=== PATIENT | female | born 1985 | race Caucasian/White ===

== ENCOUNTER 2016-06-15 12:02 | Emergency (ER) | payer OTHER ==
--- NOTE | 2016-06-15 14:20 | ED CLINICAL REPORT ---
Clinical Report - Physicians/Mid Levels [facility] [address] [place] [address] 06/15/2016 12:09 Patient: REBECCA SIFUENTES Time Seen: 13:08 Jun 15 2016. Arrived- By private vehicle. Historian- patient and family. HISTORY OF PRESENT ILLNESS Chief Complaint: MOUTH SORE. This started yesterday and is still present and worsening. Pain described as moderate. No mouth sores, nasal congestion, toothache or swollen jaw or face. She has had jaw pain. (Yesterday patient developed a cold sore. She's had them before but not at this location on her lip. Today it got worse and now patient feels some lymph nodes in her neck as well. She's had a little bit of body aches as well.). Similar symptoms previously: Milder. Recent medical care: Not recently seen/assessed. REVIEW OF SYSTEMS No fever, nausea, diarrhea, difficulty with urination or joint pain. No vomiting. She has had skin rash. All systems otherwise negative, except as recorded above. PAST HISTORY See nurses notes. No history of heart disease or lung disease. SOCIAL HISTORY Never smoker. No alcohol use or drug use. ADDITIONAL NOTES The nursing notes have been reviewed. PHYSICAL EXAM Appearance: Alert. No acute distress. Head: (No Ibarra sign.). Eyes: Pupils equal, round and reactive to light. Conjunctivae and eyelids normal. ENT: Ears normal. Nose normal. Pharynx normal. No trismus present. Uvula midline. (Lower lip has a single yellowish crusting vesicle consistent with HSV. Mild edema of the lower lip. No significant erythema.). Neck: Mild left anterior neck lymphadenopathy present. No left posterior neck lymphadenopathy. Trachea midline. Neck supple. CVS: Normal heart rate and rhythm. Heart sounds normal. Respiratory: No respiratory distress. Breath sounds normal. Skin: Normal skin color. Normal skin turgor. Extremities: Extremities exhibit normal ROM. Neuro: Oriented X 3. No motor deficit. No sensory deficit. PROGRESS AND PROCEDURES Course of Care: HSV and a new location on her lip which probably caused lymphadenopathy in the generalized symptoms. We'll treat aggressively withValtrex.I doubt cellulitis of the lip, however, [id number] prescription of Keflex was given in the event the symptoms don't start to improve in the next 48 hours. CLINICAL IMPRESSION Herpes labialis Doubt facial cellulitis INSTRUCTIONS Rest at home for two days until better. Drink plenty of fluids. Warnings: GENERAL WARNINGS: Return or contact your physician immediately if your condition worsens or changes unexpectedly, if not improving as expected, or if other problems arise. Specifically return if pain, vomiting, bleeding, breathing difficulty or fever greater than 102 degrees F worsens or fails to improve. Prescription Medications: Keflex 500 mg: take 1 capsule orally every 6 hours for 7 days. No refill. Substitution is permissible. Valtrex 1000 mg: take 1 tab orally every 12 hours for 5 days. No refills. Substitution is permissible. Follow-up: Follow up with your doctor in five days if not well. Summary of care provided to patient and follow-up provider. Understanding of the discharge instructions verbalized by patient. (Electronically signed by Kirit Hoyos, 06/15/2016 23:08)
--- NOTE | 2016-06-15 14:20 | ED NURSING NOTES ---
Clinical Report - Nurses [place] [address] [place] [address] 06/15/2016 12:09 Patient: REBECCA SIFUENTES TRIAGE Triage time 12:16. Acuity: LEVEL 4. Chief Complaint: MOUTH SORE and ("Jaw hurts"). Alert. No acute distress. SEPSIS SCREEN: Sepsis Screen. Negative (no infection suspected/documented). MIGUEL COMA SCORE: Miguel Coma Scale: 15- eyes open spontaneously (4); best verbal response- oriented x 4 (5); best motor response- obeys commands (6). --12:18 Divine Delcid R.N. 12:16 06/15/16. BP: 131/68. HR: 61. RR: 18. O2 saturation: 99%. Temp: 98.3 F. Pain level now 07/06. --12:18 Divine Delcid R.N. Weight: 127 kg stated. Height/Length: 66 inches Per Patient. BMI: 45.2. --12:17 Divine Delcid R.N. Medications None. --12:18 Divine Delcid R.N. Allergies Latex. --12:18 Divine Delcid R.N. History Arrived by private vehicle. Historian: patient. Accompanied by family. Primary physician (Dr. Andrews). This started yesterday. 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 PAST MEDICAL HX: Immunizations: up-to-date. SOCIAL HX: Never smoker. No alcohol use or drug use. No infectious disease exposure. ABUSE ASSESSMENT: Abuse assessment: The patient was asked "Do you feel safe in your home?" and "Has anyone hurt you or threatened to hurt you?". No report of abuse. SELF HARM ASSESSMENT: A self harm assessment was performed. The patient answered "no" to the question "Do you have thoughts of harming or killing yourself?" and "Have you recently had thoughts about harming or killing others?". NUTRITIONAL RISK ASSESSMENT: The nutritional risk assessment revealed no deficiencies. FUNCTIONAL ASSESSMENT: Functional assessment: no impairments noted. LEARNING NEEDS ASSESSMENT: The learning needs assessment revealed no barriers. --12:18 Divine Delcid R.N. PROBLEMS: Sprain. Dental Pain. Seizure. Acute Pain. URI. Pyelonephritis. Sinusitis. Bronchitis. --12:18 Divine Delcid R.N. ADDITIONAL SURGERIES: Cholecystectomy. . --12:18 Divine Delcid R.N. Interventions ID band on patient. Ambulatory. --12:18 Divine Delcid R.N. PHYSICAL ASSESSMENT Ambulatory to room. GENERAL / NEURO / PSYCH: Alert. Appears in no acute distress. --12:18 Divine Delcid R.N. HEENT: Voice within normal limits. Mucous membranes are pink. RESPIRATORY: Respirations not labored. SKIN: Skin is warm and dry. --12:19 Divine Delcid R.N. NURSING PROGRESS NOTES Head of bed elevated. Two patient identifiers checked. Call light placed in reach. Side rails up x 2. Bed placed in lowest position. Brakes of bed on. --12:19 Divnie Delcid R.N. Patient ready for evaluation- chart flagged. --12:19 Divine Delcid R.N. 14:35. The patient is calm. Overall patient status is the same- she states feels the same. GENERAL / NEURO / PSYCH: Alert. Oriented X 4. RESPIRATORY: No respiratory distress. SKIN: Skin is warm and dry. --16:31 Zarina Burks R.N. DISPOSITION / DISCHARGE Departure time: 1435. Condition at departure: improved and stable. No learning barriers present. Discharge instructions provided and reviewed with the patient. Reviewed medication(s). Prescription(s) given to the patient. Patient verbalized understanding. Written instructions provided in [place]. The patient was discharged home and accompanied by family. She left the Emergency Department ambulatory and via private vehicle. FALL RISK ASSESSMENT: Fall risk assessment completed. No fall risk identified. --16:30 Zarina Burks R.N. 14:35 06/15/16. BP: 134/85. HR: 65. RR: 18. O2 saturation: 99% on room air. Pain level now: 06/08. --16:30 Vitaliy, Zarina, R.N. Locked/Released at 06/15/2016 16:31 by Zarina Burks R.N.
--- NOTE | 2016-06-15 14:20 | ED CLINICAL REPORT ---
Clinical Report - Physicians/Mid Levels [facility] [address] [place] [address] 06/15/2016 12:09 Patient: REBECCA SIFUENTES Time Seen: 13:08 Jun 15 2016. Arrived- By private vehicle. Historian- patient and family. HISTORY OF PRESENT ILLNESS Chief Complaint: MOUTH SORE. This started yesterday and is still present and worsening. Pain described as moderate. No mouth sores, nasal congestion, toothache or swollen jaw or face. She has had jaw pain. (Yesterday patient developed a cold sore. She's had them before but not at this location on her lip. Today it got worse and now patient feels some lymph nodes in her neck as well. She's had a little bit of body aches as well.). Similar symptoms previously: Milder. Recent medical care: Not recently seen/assessed. REVIEW OF SYSTEMS No fever, nausea, diarrhea, difficulty with urination or joint pain. No vomiting. She has had skin rash. All systems otherwise negative, except as recorded above. PAST HISTORY See nurses notes. No history of heart disease or lung disease. SOCIAL HISTORY Never smoker. No alcohol use or drug use. ADDITIONAL NOTES The nursing notes have been reviewed. PHYSICAL EXAM Appearance: Alert. No acute distress. Head: (No Ibarra sign.). Eyes: Pupils equal, round and reactive to light. Conjunctivae and eyelids normal. ENT: Ears normal. Nose normal. Pharynx normal. No trismus present. Uvula midline. (Lower lip has a single yellowish crusting vesicle consistent with HSV. Mild edema of the lower lip. No significant erythema.). Neck: Mild left anterior neck lymphadenopathy present. No left posterior neck lymphadenopathy. Trachea midline. Neck supple. CVS: Normal heart rate and rhythm. Heart sounds normal. Respiratory: No respiratory distress. Breath sounds normal. Skin: Normal skin color. Normal skin turgor. Extremities: Extremities exhibit normal ROM. Neuro: Oriented X 3. No motor deficit. No sensory deficit. PROGRESS AND PROCEDURES Course of Care: HSV and a new location on her lip which probably caused lymphadenopathy in the generalized symptoms. We'll treat aggressively withValtrex.I doubt cellulitis of the lip, however, [id number] prescription of Keflex was given in the event the symptoms don't start to improve in the next 48 hours. CLINICAL IMPRESSION Herpes labialis Doubt facial cellulitis INSTRUCTIONS Rest at home for two days until better. Drink plenty of fluids. Warnings: GENERAL WARNINGS: Return or contact your physician immediately if your condition worsens or changes unexpectedly, if not improving as expected, or if other problems arise. Specifically return if pain, vomiting, bleeding, breathing difficulty or fever greater than 102 degrees F worsens or fails to improve. Prescription Medications: Keflex 500 mg: take 1 capsule orally every 6 hours for 7 days. No refill. Substitution is permissible. Valtrex 1000 mg: take 1 tab orally every 12 hours for 5 days. No refills. Substitution is permissible. Follow-up: Follow up with your doctor in five days if not well. Summary of care provided to patient and follow-up provider. Understanding of the discharge instructions verbalized by patient. (Electronically signed by Kirit Hoyos, 06/15/2016 23:08)
--- NOTE | 2016-06-15 14:20 | ED NURSING NOTES ---
Clinical Report - Nurses [place] [address] [place] [address] 06/15/2016 12:09 Patient: REBECCA SIFUENTES TRIAGE Triage time 12:16. Acuity: LEVEL 4. Chief Complaint: MOUTH SORE and ("Jaw hurts"). Alert. No acute distress. SEPSIS SCREEN: Sepsis Screen. Negative (no infection suspected/documented). MIGUEL COMA SCORE: Miguel Coma Scale: 15- eyes open spontaneously (4); best verbal response- oriented x 4 (5); best motor response- obeys commands (6). --12:18 Divine Delcid R.N. 12:16 06/15/16. BP: 131/68. HR: 61. RR: 18. O2 saturation: 99%. Temp: 98.3 F. Pain level now 07/06. --12:18 Divine Delcid R.N. Weight: 127 kg stated. Height/Length: 66 inches Per Patient. BMI: 45.2. --12:17 Divine Delcid R.N. Medications None. --12:18 Divine Delcid R.N. Allergies Latex. --12:18 Divine Delcid R.N. History Arrived by private vehicle. Historian: patient. Accompanied by family. Primary physician (Dr. Andrews). This started yesterday. 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 PAST MEDICAL HX: Immunizations: up-to-date. SOCIAL HX: Never smoker. No alcohol use or drug use. No infectious disease exposure. ABUSE ASSESSMENT: Abuse assessment: The patient was asked "Do you feel safe in your home?" and "Has anyone hurt you or threatened to hurt you?". No report of abuse. SELF HARM ASSESSMENT: A self harm assessment was performed. The patient answered "no" to the question "Do you have thoughts of harming or killing yourself?" and "Have you recently had thoughts about harming or killing others?". NUTRITIONAL RISK ASSESSMENT: The nutritional risk assessment revealed no deficiencies. FUNCTIONAL ASSESSMENT: Functional assessment: no impairments noted. LEARNING NEEDS ASSESSMENT: The learning needs assessment revealed no barriers. --12:18 Divine Delcid R.N. PROBLEMS: Sprain. Dental Pain. Seizure. Acute Pain. URI. Pyelonephritis. Sinusitis. Bronchitis. --12:18 Divine Delcid R.N. ADDITIONAL SURGERIES: Cholecystectomy. . --12:18 Divine Delcid R.N. Interventions ID band on patient. Ambulatory. --12:18 Divine Delcid R.N. PHYSICAL ASSESSMENT Ambulatory to room. GENERAL / NEURO / PSYCH: Alert. Appears in no acute distress. --12:18 Divine Delcid R.N. HEENT: Voice within normal limits. Mucous membranes are pink. RESPIRATORY: Respirations not labored. SKIN: Skin is warm and dry. --12:19 Divine Delcid R.N. NURSING PROGRESS NOTES Head of bed elevated. Two patient identifiers checked. Call light placed in reach. Side rails up x 2. Bed placed in lowest position. Brakes of bed on. --12:19 Divine Delcid R.N. Patient ready for evaluation- chart flagged. --12:19 Divine Delcid R.N. 14:35. The patient is calm. Overall patient status is the same- she states feels the same. GENERAL / NEURO / PSYCH: Alert. Oriented X 4. RESPIRATORY: No respiratory distress. SKIN: Skin is warm and dry. --16:31 Zarina Burks R.N. DISPOSITION / DISCHARGE Departure time: 1435. Condition at departure: improved and stable. No learning barriers present. Discharge instructions provided and reviewed with the patient. Reviewed medication(s). Prescription(s) given to the patient. Patient verbalized understanding. Written instructions provided in [place]. The patient was discharged home and accompanied by family. She left the Emergency Department ambulatory and via private vehicle. FALL RISK ASSESSMENT: Fall risk assessment completed. No fall risk identified. --16:30 Zarina Burks R.N. 14:35 06/15/16. BP: 134/85. HR: 65. RR: 18. O2 saturation: 99% on room air. Pain level now: 06/08. --16:30 Vitaliy, Zarina, R.N. Locked/Released at 06/15/2016 16:31 by Zarina Burks R.N.
--- NOTE | 2016-06-15 23:09 | ED DISCHARGE INSTRUCTIONS ---
Patient: REBECCA SIFUENTES General Instructions [facility] VisitID: [id number] [place] [address] 30y, F Registration Date/Time: 06/15/2016 Herpes labialis INSTRUCTIONS Rest at home for two days until better. Drink plenty of fluids. Warnings: GENERAL WARNINGS: Return or contact your physician immediately if your condition worsens or changes unexpectedly, if not improving as expected, or if other problems arise. Specifically return if pain, vomiting, bleeding, breathing difficulty or fever greater than 102 degrees F worsens or fails to improve. Prescription Medications: Keflex 500 mg: take 1 capsule orally every 6 hours for 7 days. No refill. Substitution is permissible. Valtrex 1000 mg: take 1 tab orally every 12 hours for 5 days. No refills. Substitution is permissible. Follow-up: Follow up with your doctor in five days if not well. Summary of care provided to patient and follow-up provider. Understanding of the discharge instructions verbalized by patient. ADDITIONAL INFORMATION Facial Cellulitis You have an infection of the skin known as cellulitis. This usually starts with a scrape, cut or insect bite which becomes infected. It may also occur from an infected oil gland (pimple) or hair follicle. This can be a serious condition and must be watched closely to be sure the infection is not spreading. With antibiotic treatment, the size of the red area will gradually shrink in size until the skin returns to normal. This will take 7-10 days. The red area should never increase in size once the antibiotic medicine has been started. Occasionally, an infection will be resistant to one antibiotic and another one will have to be used. Home Care: 1) Take all of the antibiotic medicine exactly as prescribed until it is gone. Be careful not to miss any doses, especially during the first few days. 2) A cool compress (face cloth soaked in cool water) applied to the face may help with the swelling and pain. 3) You may use acetaminophen (Tylenol) or ibuprofen (Motrin, Advil) to control pain, unless another medicine was prescribed. [ NOTE : If you have chronic liver or kidney disease or ever had a stomach ulcer or GI bleeding, talk with your doctor before using these medicines.] (Aspirin should never be used in anyone under 18 years of age who is ill with a fever. It may cause severe liver damage.) Follow Up with your doctor or this facility as directed. Check the infected area daily for the warning signs listed below. Get Prompt Medical Attention if any of the following occur: -- Increasing area of redness, swelling or pain -- Pus or fluid drainage from the skin or the eye -- Fever of 100.5 F (38 C) oral or 101.5 F (38.6 C) rectal for more than two days on antibiotics -- Eyelid swells shut -- Increasing headache or neck pain -- Unusual drowsiness or confusion -- Convulsion (seizure) Cold Sore (Child) A cold sore (also called fever blister) is a common viral infection around the lips. It is caused by the herpes simplex virus. There are two types of herpes simplex viruses (type 1 and type 2).Type 1 causes most cold sores, while type 2 causes most herpes genital infections. A person usually gets the virus during banking supervisor by kissing or touching the cold sore of another child or adult. Most adults have been exposed to the virus, although only about one third will ever get a cold sore. Because the virus remains in the body even after the sores heal, most children will have future outbreaks. The frequency of outbreaks varies with each child. Some will never have another outbreak. Others will have several a year. A cold sore starts as a small group of painful blisters on the lip or inside the mouth. The lip blisters break open, dry up, and usually go away within one week. Different things can trigger an outbreak. These include: Emotional stress Another illness (cold, flu, or fever from any cause) Heavy sun exposure Overexertion and fatigue Menstruation Cold sores can be spread a few days before the onset of an outbreak to when the blisters have dried. Taking antiviral medication can shorten the time sores heal by about 1 to 2 days. If you get frequent sores, antiviral medications can be used to reduce the number of outbreaks. Home Care You may use acetaminophen (Tylenol) or ibuprofen (Motrin, Advil) to control pain or fever, unless another medicine was prescribed. NOTE: If you have chronic liver or kidney disease or ever had a stomach ulcer or GI bleeding, talk with your doctor before using these medicines. Aspirin should never be used in anyone under 18 years of age who is ill with a fever. It can cause severe liver damage. Diyc-nba-ddmvwax remedies such as Campho-Phenique or Anbesol may help relieve pain. For severe pain, apply an ice cube to the lip sore for a few minutes at a time. Rinse the mouth with a glass of warm water mixed with a teaspoon of baking soda to relieve pain. Avoid acidic foods (citrus fruits and tomatoes). Avoid the things listed above that you know can trigger an outbreak. Take any antiviral medications exactly as directed. For best results, start the medication at the first sign of an outbreak. Do not touch the cold sore. Avoid touching your eyes so the virus does not spread there. To avoid spreading the virus to others during an outbreak: Wash your hands often. Do not kiss. Do not share utensils, towels, or toothbrushes. Clean toys with a disinfectant. Wear a hat and use zinc oxide or sunblock on your lips before going out in the sun. Children with open draining lip sores should be kept out of school or daycare until the sore forms a scab. Follow Up with your doctor as advised by our staff. Return Promptly or contact your doctor if any of the following occur: Eye pain, redness, or drainage from the eye Headache, stiff neck Inability to eat or drink due to pain Unusual irritability, drowsiness, or confusion Cephalexin Monohydrate Oral tablet What is this medicine? CEPHALEXIN (sef a NONI in) is a cephalosporin antibiotic. It is used to treat certain kinds of bacterial infections It will not work for colds, flu, or other viral infections. How should I use this medicine? Take this medicine by mouth with a full glass of water. Follow the directions on the prescription label. This medicine can be taken with or without food. Take your medicine at regular intervals. Do not take your medicine more often than directed. Take all of your medicine as directed even if you think you are better. Do not skip doses or stop your medicine early. Talk to your marine diesel technician regarding the use of this medicine in children. While this drug may be prescribed for selected conditions, precautions do apply. What side effects may I notice from receiving this medicine? Side effects that you should report to your doctor or health ocular care technician as soon as possible: allergic reactions like skin rash, itching or hives, swelling of the face, lips, or tongue breathing problems pain or trouble passing urine redness, blistering, peeling or loosening of the skin, including inside the mouth severe or watery diarrhea unusually weak or tired yellowing of the eyes, skin Side effects that usually do not require medical attention (report to your doctor or health ocular care technician if they continue or are bothersome): gas or heartburn genital or anal irritation headache joint or muscle pain nausea, vomiting What may interact with this medicine? probenecid some other antibiotics What if I miss a dose? If you miss a dose, take it as soon as you can. If it is almost time for your next dose, take only that dose. Do not take double or extra doses. There should be at least 4 to 6 hours between doses. Where should I keep my medicine? Keep out of the reach of children. Store at room temperature between 59 and 86 degrees F (15 and 30 degrees C). Throw away any unused medicine after the expiration date. What should I tell my health care provider before I take this medicine? They need to know if you have any of these conditions: kidney disease stomach or intestine problems, especially colitis an unusual or allergic reaction to cephalexin, other cephalosporins, penicillins, other antibiotics, medicines, foods, dyes or preservatives or trying to get breast-feeding What should I watch for while using this medicine? Tell your doctor or health ocular care technician if your symptoms do not begin to improve in a few days. Do not treat diarrhea with over the counter products. Contact your doctor if you have diarrhea that lasts more than 2 days or if it is severe and watery. If you have diabetes, you may get a false-positive result for sugar in your urine. Check with your doctor or health ocular care technician. Valacyclovir Hydrochloride Oral tablet What is this medicine? VALACYCLOVIR (radha ay SYE kloe veer) is an antiviral medicine. It is used to treat or prevent infections caused by certain kinds of viruses. Examples of these infections include herpes and shingles. This medicine will not cure herpes. How should I use this medicine? Take this medicine by mouth with a glass of water. Follow the directions on the prescription label. You can take this medicine with or without food. Take your doses at regular intervals. Do not take your medicine more often than directed. Finish the full course prescribed by your doctor or health ocular care technician even if you think your condition is better. Do not stop taking except on the advice of your doctor or health ocular care technician. Talk to your marine diesel technician regarding the use of this medicine in children. While this drug may be prescribed for children as young as 2 years for selected conditions, precautions do apply. What side effects may I notice from receiving this medicine? Side effects that you should report to your doctor or health ocular care technician as soon as possible: allergic reactions like skin rash, itching or hives, swelling of the face, lips, or tongue aggressive behavior confusion hallucinations problems with balance, talking, walking stomach pain tremor trouble passing urine or change in the amount of urine Side effects that usually do not require medical attention (report to your doctor or health ocular care technician if they continue or are bothersome): dizziness headache nausea, vomiting What may interact with this medicine? cimetidine probenecid What if I miss a dose? If you miss a dose, take it as soon as you can. If it is almost time for your next dose, take only that dose. Do not take double or extra doses. Where should I keep my medicine? Keep out of the reach of children. Store at room temperature between 15 and 25 degrees C (59 and 77 degrees F). Keep container tightly closed. Throw away any unused medicine after the expiration date. What should I tell my health care provider before I take this medicine? They need to know if you have any of these conditions: acquired immunodeficiency syndrome (AIDS) any other condition that may weaken the immune system bone marrow or kidney transplant kidney disease an unusual or allergic reaction to valacyclovir, acyclovir, ganciclovir, valganciclovir, other medicines, foods, dyes, or preservatives or trying to get breast-feeding What should I watch for while using this medicine? Tell your doctor or health ocular care technician if your symptoms do not start to get better after 1 week. This medicine works best when taken early in the course of an infection, within the first 72 hours. Begin treatment as soon as possible after the first signs of infection like tingling, itching, or pain in the affected area. It is possible that genital herpes may still be spread even when you are not having symptoms. Always use safer sex practices like condoms made of latex or polyurethane whenever you have sexual contact. You should stay well hydrated while taking this medicine. Drink plenty of fluids. You have been given the following additional information: Cellulitis, Facial Herpes Labialis, Hsv: Type I Cephalexin Monohydrate Oral tablet Valacyclovir Hydrochloride Oral tablet Rest at home for two days until better. (Electronically signed by Kirit Hoyos, 06/15/2016 23:08)
--- NOTE | 2016-06-15 23:09 | ED MAR SUMMARY ---
..... Medication Administration Record [facility] [address] [place], [place] [id number] Patient: REBECCA SIFUENTES Ramon Visit ID: [id number] 30y, F Weight: 127.0 kg Height/Length: 66 in BMI: 45.2 ALLERGIES: Latex
--- NOTE | 2016-06-15 23:09 | ED DISCHARGE INSTRUCTIONS ---
Patient: REBECCA SIFUENTES General Instructions [facility] VisitID: [id number] [place] [address] 30y, F Registration Date/Time: 06/15/2016 Herpes labialis INSTRUCTIONS Rest at home for two days until better. Drink plenty of fluids. Warnings: GENERAL WARNINGS: Return or contact your physician immediately if your condition worsens or changes unexpectedly, if not improving as expected, or if other problems arise. Specifically return if pain, vomiting, bleeding, breathing difficulty or fever greater than 102 degrees F worsens or fails to improve. Prescription Medications: Keflex 500 mg: take 1 capsule orally every 6 hours for 7 days. No refill. Substitution is permissible. Valtrex 1000 mg: take 1 tab orally every 12 hours for 5 days. No refills. Substitution is permissible. Follow-up: Follow up with your doctor in five days if not well. Summary of care provided to patient and follow-up provider. Understanding of the discharge instructions verbalized by patient. ADDITIONAL INFORMATION Facial Cellulitis You have an infection of the skin known as cellulitis. This usually starts with a scrape, cut or insect bite which becomes infected. It may also occur from an infected oil gland (pimple) or hair follicle. This can be a serious condition and must be watched closely to be sure the infection is not spreading. With antibiotic treatment, the size of the red area will gradually shrink in size until the skin returns to normal. This will take 7-10 days. The red area should never increase in size once the antibiotic medicine has been started. Occasionally, an infection will be resistant to one antibiotic and another one will have to be used. Home Care: 1) Take all of the antibiotic medicine exactly as prescribed until it is gone. Be careful not to miss any doses, especially during the first few days. 2) A cool compress (face cloth soaked in cool water) applied to the face may help with the swelling and pain. 3) You may use acetaminophen (Tylenol) or ibuprofen (Motrin, Advil) to control pain, unless another medicine was prescribed. [ NOTE : If you have chronic liver or kidney disease or ever had a stomach ulcer or GI bleeding, talk with your doctor before using these medicines.] (Aspirin should never be used in anyone under 18 years of age who is ill with a fever. It may cause severe liver damage.) Follow Up with your doctor or this facility as directed. Check the infected area daily for the warning signs listed below. Get Prompt Medical Attention if any of the following occur: -- Increasing area of redness, swelling or pain -- Pus or fluid drainage from the skin or the eye -- Fever of 100.5 F (38 C) oral or 101.5 F (38.6 C) rectal for more than two days on antibiotics -- Eyelid swells shut -- Increasing headache or neck pain -- Unusual drowsiness or confusion -- Convulsion (seizure) Cold Sore (Child) A cold sore (also called fever blister) is a common viral infection around the lips. It is caused by the herpes simplex virus. There are two types of herpes simplex viruses (type 1 and type 2).Type 1 causes most cold sores, while type 2 causes most herpes genital infections. A person usually gets the virus during rn wound care by kissing or touching the cold sore of another child or adult. Most adults have been exposed to the virus, although only about one third will ever get a cold sore. Because the virus remains in the body even after the sores heal, most children will have future outbreaks. The frequency of outbreaks varies with each child. Some will never have another outbreak. Others will have several a year. A cold sore starts as a small group of painful blisters on the lip or inside the mouth. The lip blisters break open, dry up, and usually go away within one week. Different things can trigger an outbreak. These include: Emotional stress Another illness (cold, flu, or fever from any cause) Heavy sun exposure Overexertion and fatigue Menstruation Cold sores can be spread a few days before the onset of an outbreak to when the blisters have dried. Taking antiviral medication can shorten the time sores heal by about 1 to 2 days. If you get frequent sores, antiviral medications can be used to reduce the number of outbreaks. Home Care You may use acetaminophen (Tylenol) or ibuprofen (Motrin, Advil) to control pain or fever, unless another medicine was prescribed. NOTE: If you have chronic liver or kidney disease or ever had a stomach ulcer or GI bleeding, talk with your doctor before using these medicines. Aspirin should never be used in anyone under 18 years of age who is ill with a fever. It can cause severe liver damage. Bfxr-dgq-zyliymb remedies such as Campho-Phenique or Anbesol may help relieve pain. For severe pain, apply an ice cube to the lip sore for a few minutes at a time. Rinse the mouth with a glass of warm water mixed with a teaspoon of baking soda to relieve pain. Avoid acidic foods (citrus fruits and tomatoes). Avoid the things listed above that you know can trigger an outbreak. Take any antiviral medications exactly as directed. For best results, start the medication at the first sign of an outbreak. Do not touch the cold sore. Avoid touching your eyes so the virus does not spread there. To avoid spreading the virus to others during an outbreak: Wash your hands often. Do not kiss. Do not share utensils, towels, or toothbrushes. Clean toys with a disinfectant. Wear a hat and use zinc oxide or sunblock on your lips before going out in the sun. Children with open draining lip sores should be kept out of school or daycare until the sore forms a scab. Follow Up with your doctor as advised by our staff. Return Promptly or contact your doctor if any of the following occur: Eye pain, redness, or drainage from the eye Headache, stiff neck Inability to eat or drink due to pain Unusual irritability, drowsiness, or confusion Cephalexin Monohydrate Oral tablet What is this medicine? CEPHALEXIN (sef a NONI in) is a cephalosporin antibiotic. It is used to treat certain kinds of bacterial infections It will not work for colds, flu, or other viral infections. How should I use this medicine? Take this medicine by mouth with a full glass of water. Follow the directions on the prescription label. This medicine can be taken with or without food. Take your medicine at regular intervals. Do not take your medicine more often than directed. Take all of your medicine as directed even if you think you are better. Do not skip doses or stop your medicine early. Talk to your cardiology nurse practitioner regarding the use of this medicine in children. While this drug may be prescribed for selected conditions, precautions do apply. What side effects may I notice from receiving this medicine? Side effects that you should report to your doctor or health acute care certified nursing assistant as soon as possible: allergic reactions like skin rash, itching or hives, swelling of the face, lips, or tongue breathing problems pain or trouble passing urine redness, blistering, peeling or loosening of the skin, including inside the mouth severe or watery diarrhea unusually weak or tired yellowing of the eyes, skin Side effects that usually do not require medical attention (report to your doctor or health acute care certified nursing assistant if they continue or are bothersome): gas or heartburn genital or anal irritation headache joint or muscle pain nausea, vomiting What may interact with this medicine? probenecid some other antibiotics What if I miss a dose? If you miss a dose, take it as soon as you can. If it is almost time for your next dose, take only that dose. Do not take double or extra doses. There should be at least 4 to 6 hours between doses. Where should I keep my medicine? Keep out of the reach of children. Store at room temperature between 59 and 86 degrees F (15 and 30 degrees C). Throw away any unused medicine after the expiration date. What should I tell my health care provider before I take this medicine? They need to know if you have any of these conditions: kidney disease stomach or intestine problems, especially colitis an unusual or allergic reaction to cephalexin, other cephalosporins, penicillins, other antibiotics, medicines, foods, dyes or preservatives or trying to get breast-feeding What should I watch for while using this medicine? Tell your doctor or health acute care certified nursing assistant if your symptoms do not begin to improve in a few days. Do not treat diarrhea with over the counter products. Contact your doctor if you have diarrhea that lasts more than 2 days or if it is severe and watery. If you have diabetes, you may get a false-positive result for sugar in your urine. Check with your doctor or health acute care certified nursing assistant. Valacyclovir Hydrochloride Oral tablet What is this medicine? VALACYCLOVIR (radha ay SYE kloe veer) is an antiviral medicine. It is used to treat or prevent infections caused by certain kinds of viruses. Examples of these infections include herpes and shingles. This medicine will not cure herpes. How should I use this medicine? Take this medicine by mouth with a glass of water. Follow the directions on the prescription label. You can take this medicine with or without food. Take your doses at regular intervals. Do not take your medicine more often than directed. Finish the full course prescribed by your doctor or health acute care certified nursing assistant even if you think your condition is better. Do not stop taking except on the advice of your doctor or health acute care certified nursing assistant. Talk to your cardiology nurse practitioner regarding the use of this medicine in children. While this drug may be prescribed for children as young as 2 years for selected conditions, precautions do apply. What side effects may I notice from receiving this medicine? Side effects that you should report to your doctor or health acute care certified nursing assistant as soon as possible: allergic reactions like skin rash, itching or hives, swelling of the face, lips, or tongue aggressive behavior confusion hallucinations problems with balance, talking, walking stomach pain tremor trouble passing urine or change in the amount of urine Side effects that usually do not require medical attention (report to your doctor or health acute care certified nursing assistant if they continue or are bothersome): dizziness headache nausea, vomiting What may interact with this medicine? cimetidine probenecid What if I miss a dose? If you miss a dose, take it as soon as you can. If it is almost time for your next dose, take only that dose. Do not take double or extra doses. Where should I keep my medicine? Keep out of the reach of children. Store at room temperature between 15 and 25 degrees C (59 and 77 degrees F). Keep container tightly closed. Throw away any unused medicine after the expiration date. What should I tell my health care provider before I take this medicine? They need to know if you have any of these conditions: acquired immunodeficiency syndrome (AIDS) any other condition that may weaken the immune system bone marrow or kidney transplant kidney disease an unusual or allergic reaction to valacyclovir, acyclovir, ganciclovir, valganciclovir, other medicines, foods, dyes, or preservatives or trying to get breast-feeding What should I watch for while using this medicine? Tell your doctor or health acute care certified nursing assistant if your symptoms do not start to get better after 1 week. This medicine works best when taken early in the course of an infection, within the first 72 hours. Begin treatment as soon as possible after the first signs of infection like tingling, itching, or pain in the affected area. It is possible that genital herpes may still be spread even when you are not having symptoms. Always use safer sex practices like condoms made of latex or polyurethane whenever you have sexual contact. You should stay well hydrated while taking this medicine. Drink plenty of fluids. You have been given the following additional information: Cellulitis, Facial Herpes Labialis, Hsv: Type I Cephalexin Monohydrate Oral tablet Valacyclovir Hydrochloride Oral tablet Rest at home for two days until better. (Electronically signed by Kirit Hoyos, 06/15/2016 23:08)
--- NOTE | 2016-06-15 23:09 | ED MED RECONCILIATION SUMMARY ---
Patient: REBECCA SIFUENTES Medication Reconciliation Report [facility] VisitID: [id number] [address] [place] [address] 30y, F Registration Date/Time: 06/15/2016 Weight: 127.0 kg Height/Length: 66 in. BMI: 45.2 ALLERGIES: Latex The patient's Home Medications are listed below: NONE. The source(s) of the original Home Medication information: Not obtained. The following Medications were given to the patient in the Emergency Department: None. The following Medications were prescribed to the patient: Keflex 500 mg: take 1 capsule orally every 6 hours for 7 days. No refill. Substitution is permissible. -- Kirit Hoyos Valtrex 1000 mg: take 1 tab orally every 12 hours for 5 days. No refills. Substitution is permissible. -- Kirit Hoyos
--- NOTE | 2016-06-15 23:09 | ED MED RECONCILIATION SUMMARY ---
Patient: REBECCA SIFUENTES Medication Reconciliation Report [facility] VisitID: [id number] [address] [place] [address] 30y, F Registration Date/Time: 06/15/2016 Weight: 127.0 kg Height/Length: 66 in. BMI: 45.2 ALLERGIES: Latex The patient's Home Medications are listed below: NONE. The source(s) of the original Home Medication information: Not obtained. The following Medications were given to the patient in the Emergency Department: None. The following Medications were prescribed to the patient: Keflex 500 mg: take 1 capsule orally every 6 hours for 7 days. No refill. Substitution is permissible. -- Kirit Hoyos Valtrex 1000 mg: take 1 tab orally every 12 hours for 5 days. No refills. Substitution is permissible. -- Kirit Hoyos
--- NOTE | 2016-06-15 23:09 | ED MAR SUMMARY ---
..... Medication Administration Record [facility] [address] [place], [place] [id number] Patient: REBECCA SIFUENTES Ramon Visit ID: [id number] 30y, F Weight: 127.0 kg Height/Length: 66 in BMI: 45.2 ALLERGIES: Latex
== END 2016-06-15 14:35 | disposition home or self-care (01) ==
LOC: ED SRH 12:02
DX: B00.1 Herpesviral vesicular dermatitis (principal)

== ENCOUNTER 2016-07-18 03:36 | Emergency (ER) | payer OTHER ==
--- NOTE | 2016-07-18 03:56 | ED NURSING NOTES ---
Clinical Report - Nurses [facility] [address] [place] [address] 07/18/2016 3:36 Patient: REBECCA SIFUENTES TRIAGE Triage time 03:42. Acuity: LEVEL 4. Chief Complaint: SKIN RASH and . on arms and back. Alert. SEPSIS SCREEN: Sepsis Screen. Negative (no infection suspected/documented). SHIRA COMA SCORE: [place] Coma Scale: 15- eyes open spontaneously (4); best verbal response- oriented x 4 (5); best motor response- obeys commands (6). --03:48 Sukhdeep Aquino R.N. 03:42 07/18/16. BP: 140/81. HR: 74. RR: 20. O2 saturation: 99% on room air. Temp: 98.2 F. Pain level now: 0/10. --03:48 Sukhdeep Aquino R.N. Weight: 127 kg stated. Height/Length: 66 inches Per Patient. BMI: 45.2. --03:42 Sukhdeep Aquino R.N. Medications None. --03:44 Sukhdeep Aquino R.N. Allergies Latex. --03:44 Sukhdeep Aquino R.N. History Arrived by private vehicle. Historian: patient. Accompanied by friend. Reported as (arms and back and "all over my body"). It is described as itchy. ( pt states having generalized itching for "2 days". has small red raised areas on backs of arms and back). No fever, muscle aches, headache, cough or difficulty breathing. No itching or weakness. 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 PAST MEDICAL HX: ( unknown if ). SOCIAL HX: Never smoker. No alcohol use or drug use. SELF HARM ASSESSMENT: A self harm assessment was performed. The patient answered "no" to the question "Have you recently felt down, depressed, or hopeless?", "Have you noticed less interest or pleasure in doing things?", "Do you have thoughts of harming or killing yourself?", "Are you here because you tried to hurt yourself?", "Have you ever tried to hurt yourself before today?" and "Have you recently had thoughts about harming or killing others?". FALL RISK ASSESSMENT: Fall risk assessment completed. No fall risk identified. NUTRITIONAL RISK ASSESSMENT: The nutritional risk assessment revealed no deficiencies. FUNCTIONAL ASSESSMENT: Functional assessment: no impairments noted. LEARNING NEEDS ASSESSMENT: The learning needs assessment revealed no barriers. SKIN INTEGRITY ASSESSMENT: Skin integrity risk assessment completed. No skin integrity risk identified. --03:48 Sukhdeep Aquino R.N. PROBLEMS: Sprain. Dental Pain. Seizure. Acute Pain. URI. Pyelonephritis. Sinusitis. Bronchitis. --03:44 Sukhdeep Aquino R.N. ADDITIONAL SURGERIES: Cholecystectomy. . Ectopic [2011]. --03:44 Sukhdeep Aquino R.N. Interventions ID and allergy band on patient. To treatment room. --03:48 Sukhdeep Aquino R.N. PHYSICAL ASSESSMENT Ambulatory to room. GENERAL / NEURO / PSYCH: Alert. The patient does not appear to be in acute distress. Oriented X 4. HEENT: Mucous membranes are pink. RESPIRATORY: Respirations not labored. CVS: Capillary refill less than 2 seconds. GI / : Abdomen nontender. SKIN: Skin is warm and dry. Skin rash present. Normal skin turgor. --03:48 Sukhdeep Aquino R.N. NURSING PROGRESS NOTES Head of bed elevated. Reassurance given. Two patient identifiers checked. Call light placed in reach. Side rails up x 1. Bed placed in lowest position. Brakes of bed on. Patient ready for evaluation- chart flagged. Patient waiting for evaluation. --03:49 Sukhdeep Aquino R.N. ( Doctor with patient currently.). --03:49 Sukhdeep Aquino R.N. DISPOSITION / DISCHARGE Departure time: 04:01. Condition at departure: stable. No learning barriers present. Discharge instructions provided and reviewed with the patient. Reviewed medication(s) side effects, precautions, dosing and course information. Prescription(s) given to the patient. Treatments reviewed. Reviewed referrals. Activity restrictions (no driving) reviewed. Work note given. Follow up contact number. Patient verbalized understanding. Written instructions provided in Vietnamese. No diet instructions or stop smoking instructions. The patient was discharged by the physician. She was discharged home and accompanied by family. She left the Emergency Department ambulatory and via private vehicle. Family member driving. FALL RISK ASSESSMENT: Fall risk assessment completed. No fall risk identified. --04:01 Rusty Forman 04:00 07/18/16. BP: deferred. HR: deferred. RR: deferred. O2 saturation: deferred. Temp: deferred. Pain level now deferred. --04:01 Rusty Forman Locked/Released at 07/18/2016 4:01 by Rusty Forman
--- NOTE | 2016-07-18 03:56 | ED CLINICAL REPORT ---
Clinical Report - Physicians/Mid Levels [facility] [address] [place] [address] 07/18/2016 3:36 Patient: REBECCA SIFUENTES Time Seen: 03:51. Arrived- By private vehicle. Historian- patient. HISTORY OF PRESENT ILLNESS Chief Complaint: SKIN RASH. This started several days ago and is still present. It is described as itchy. It has been generalized in location. No cause has been identified. REVIEW OF SYSTEMS No chills, fever, sweats, calf pain or chest pain. No cough, difficulty breathing, pedal edema, palpitations or abdominal pain. No constipation, diarrhea, nausea, vomiting or urinary problems. All systems otherwise negative, except as recorded above. PAST HISTORY Problems: Sprain. Dental Pain. Seizure. Acute Pain. URI. Pyelonephritis. Sinusitis. Bronchitis. Additional Surgeries: Cholecystectomy. . Ectopic [2011]. Medications: None. Allergies: Latex. SOCIAL HISTORY Never smoker. No alcohol use or drug use. FAMILY HISTORY No significant family medical history. ADDITIONAL NOTES The nursing notes have been reviewed. PHYSICAL EXAM Vital Signs: 07/18/2016 03:42 BP: 140/81. HR: 74. RR: 20. O2 saturation: 99%. Temp: 98.2 F. Pain level now: 0/10. Have been reviewed. Appearance: Alert. No acute distress. She is morbidly obese. Eyes: Pupils equal, round and reactive to light. ENT: Pharynx normal. Neck: Neck supple. CVS: Normal heart rate and rhythm. Heart sounds normal. Respiratory: No respiratory distress. Breath sounds normal. Abdomen: Nontender. No organomegaly. Skin: The rash is generalized (mild). The rash is confluent, maculopapular and patchy. Extremities: Normal external inspection. Extremities nontender. No calf tenderness. Neuro: No motor deficit. No sensory deficit. PROGRESS AND PROCEDURES Course of Care: Patient is stable. Patient/family counseled. Old medical records reviewed. Disposition: Discharged. Condition: stable. CLINICAL IMPRESSION Skin rash. INSTRUCTIONS No driving or operating machinery while taking medication. Warnings: GENERAL WARNINGS: Return or contact your physician immediately if your condition worsens or changes unexpectedly, if not improving as expected, or if other problems arise. Prescription Medications: Prednisone 20 mg: take 2 orally every day for 5 days. Dispense ten (10). No refills. OTC Medications: Benadryl (available over the counter): take according to label instructions. Understanding of the discharge instructions verbalized by patient. Follow-up with: Joe Adnrews MD, [facility], [phone], [facility], [address] [place] [address].[place] [id number] Follow up in five days if not better. (Electronically signed by Ronald Arboleda MD 07/18/2016 8:11)
--- NOTE | 2016-07-18 03:56 | ED CLINICAL REPORT ---
Clinical Report - Physicians/Mid Levels [facility] [address] [place] [address] 07/18/2016 3:36 Patient: REBECCA SIFUENTES Time Seen: 03:51. Arrived- By private vehicle. Historian- patient. HISTORY OF PRESENT ILLNESS Chief Complaint: SKIN RASH. This started several days ago and is still present. It is described as itchy. It has been generalized in location. No cause has been identified. REVIEW OF SYSTEMS No chills, fever, sweats, calf pain or chest pain. No cough, difficulty breathing, pedal edema, palpitations or abdominal pain. No constipation, diarrhea, nausea, vomiting or urinary problems. All systems otherwise negative, except as recorded above. PAST HISTORY Problems: Sprain. Dental Pain. Seizure. Acute Pain. URI. Pyelonephritis. Sinusitis. Bronchitis. Additional Surgeries: Cholecystectomy. . Ectopic [2011]. Medications: None. Allergies: Latex. SOCIAL HISTORY Never smoker. No alcohol use or drug use. FAMILY HISTORY No significant family medical history. ADDITIONAL NOTES The nursing notes have been reviewed. PHYSICAL EXAM Vital Signs: 07/18/2016 03:42 BP: 140/81. HR: 74. RR: 20. O2 saturation: 99%. Temp: 98.2 F. Pain level now: 0/10. Have been reviewed. Appearance: Alert. No acute distress. She is morbidly obese. Eyes: Pupils equal, round and reactive to light. ENT: Pharynx normal. Neck: Neck supple. CVS: Normal heart rate and rhythm. Heart sounds normal. Respiratory: No respiratory distress. Breath sounds normal. Abdomen: Nontender. No organomegaly. Skin: The rash is generalized (mild). The rash is confluent, maculopapular and patchy. Extremities: Normal external inspection. Extremities nontender. No calf tenderness. Neuro: No motor deficit. No sensory deficit. PROGRESS AND PROCEDURES Course of Care: Patient is stable. Patient/family counseled. Old medical records reviewed. Disposition: Discharged. Condition: stable. CLINICAL IMPRESSION Skin rash. INSTRUCTIONS No driving or operating machinery while taking medication. Warnings: GENERAL WARNINGS: Return or contact your physician immediately if your condition worsens or changes unexpectedly, if not improving as expected, or if other problems arise. Prescription Medications: Prednisone 20 mg: take 2 orally every day for 5 days. Dispense ten (10). No refills. OTC Medications: Benadryl (available over the counter): take according to label instructions. Understanding of the discharge instructions verbalized by patient. Follow-up with: Joe Andrews MD, [facility], [phone], [facility], [address] [place] [address].[place] [id number] Follow up in five days if not better. (Electronically signed by Ronald Arboleda MD 07/18/2016 8:11)
--- NOTE | 2016-07-18 03:56 | ED NURSING NOTES ---
Clinical Report - Nurses [facility] [address] [place] [address] 07/18/2016 3:36 Patient: REBECCA SIFUENTES TRIAGE Triage time 03:42. Acuity: LEVEL 4. Chief Complaint: SKIN RASH and . on arms and back. Alert. SEPSIS SCREEN: Sepsis Screen. Negative (no infection suspected/documented). SHIRA COMA SCORE: [place] Coma Scale: 15- eyes open spontaneously (4); best verbal response- oriented x 4 (5); best motor response- obeys commands (6). --03:48 Sukhdeep Aquino R.N. 03:42 07/18/16. BP: 140/81. HR: 74. RR: 20. O2 saturation: 99% on room air. Temp: 98.2 F. Pain level now: 0/10. --03:48 Sukhdeep Aquino R.N. Weight: 127 kg stated. Height/Length: 66 inches Per Patient. BMI: 45.2. --03:42 Sukhdeep Aquino R.N. Medications None. --03:44 Sukhdeep Aquino R.N. Allergies Latex. --03:44 Sukhdeep Aquino R.N. History Arrived by private vehicle. Historian: patient. Accompanied by friend. Reported as (arms and back and "all over my body"). It is described as itchy. ( pt states having generalized itching for "2 days". has small red raised areas on backs of arms and back). No fever, muscle aches, headache, cough or difficulty breathing. No itching or weakness. Treatment INTERFACE DESIGNER: None. PAST MEDICAL HX: ( unknown if ). SOCIAL HX: Never smoker. No alcohol use or drug use. SELF HARM ASSESSMENT: A self harm assessment was performed. The patient answered "no" to the question "Have you recently felt down, depressed, or hopeless?", "Have you noticed less interest or pleasure in doing things?", "Do you have thoughts of harming or killing yourself?", "Are you here because you tried to hurt yourself?", "Have you ever tried to hurt yourself before today?" and "Have you recently had thoughts about harming or killing others?". FALL RISK ASSESSMENT: Fall risk assessment completed. No fall risk identified. NUTRITIONAL RISK ASSESSMENT: The nutritional risk assessment revealed no deficiencies. FUNCTIONAL ASSESSMENT: Functional assessment: no impairments noted. LEARNING NEEDS ASSESSMENT: The learning needs assessment revealed no barriers. SKIN INTEGRITY ASSESSMENT: Skin integrity risk assessment completed. No skin integrity risk identified. --03:48 Sukhdeep Aquino R.N. PROBLEMS: Sprain. Dental Pain. Seizure. Acute Pain. URI. Pyelonephritis. Sinusitis. Bronchitis. --03:44 Sukhdeep Aquino R.N. ADDITIONAL SURGERIES: Cholecystectomy. . Ectopic [2011]. --03:44 Sukhdeep Aquino R.N. Interventions ID and allergy band on patient. To treatment room. --03:48 Sukhdeep Aquino R.N. PHYSICAL ASSESSMENT Ambulatory to room. GENERAL / NEURO / PSYCH: Alert. The patient does not appear to be in acute distress. Oriented X 4. HEENT: Mucous membranes are pink. RESPIRATORY: Respirations not labored. CVS: Capillary refill less than 2 seconds. GI / : Abdomen nontender. SKIN: Skin is warm and dry. Skin rash present. Normal skin turgor. --03:48 Sukhdeep Aquino R.N. NURSING PROGRESS NOTES Head of bed elevated. Reassurance given. Two patient identifiers checked. Call light placed in reach. Side rails up x 1. Bed placed in lowest position. Brakes of bed on. Patient ready for evaluation- chart flagged. Patient waiting for evaluation. --03:49 Sukhdeep Aquino R.N. ( Doctor with patient currently.). --03:49 Sukhdeep Aquino R.N. DISPOSITION / DISCHARGE Departure time: 04:01. Condition at departure: stable. No learning barriers present. Discharge instructions provided and reviewed with the patient. Reviewed medication(s) side effects, precautions, dosing and course information. Prescription(s) given to the patient. Treatments reviewed. Reviewed referrals. Activity restrictions (no driving) reviewed. Work note given. Follow up contact number. Patient verbalized understanding. Written instructions provided in Amharic. No diet instructions or stop smoking instructions. The patient was discharged by the physician. She was discharged home and accompanied by family. She left the Emergency Department ambulatory and via private vehicle. Family member driving. FALL RISK ASSESSMENT: Fall risk assessment completed. No fall risk identified. --04:01 Rusty Forman 04:00 07/18/16. BP: deferred. HR: deferred. RR: deferred. O2 saturation: deferred. Temp: deferred. Pain level now deferred. --04:01 Rsuty Forman Locked/Released at 07/18/2016 4:01 by Rusty Forman
--- NOTE | 2016-07-18 08:11 | ED MED RECONCILIATION SUMMARY ---
Patient: REBECCA SIFUENTES Medication Reconciliation Report [facility] VisitID: [id number] [address] [place] [address] 31y, F Registration Date/Time: 07/18/2016 Weight: 127.0 kg Height/Length: 66 in. BMI: 45.2 ALLERGIES: Latex The patient's Home Medications are listed below: NONE. The source(s) of the original Home Medication information: Not obtained. The following Medications were given to the patient in the Emergency Department: None. The following Medications were prescribed to the patient: Benadryl (available over the counter): take according to label instructions. -- Ronald Arboleda MD Prednisone 20 mg: take 2 orally every day for 5 days. Dispense ten (10). No refills. -- Ronald Arboleda MD
--- NOTE | 2016-07-18 08:11 | ED DISCHARGE INSTRUCTIONS ---
Patient: REBECCA SIFUENTES General Instructions [facility] VisitID: [id number] [place] [address] 31y, F Registration Date/Time: 07/18/2016 Skin rash. INSTRUCTIONS No driving or operating machinery while taking medication. Warnings: GENERAL WARNINGS: Return or contact your physician immediately if your condition worsens or changes unexpectedly, if not improving as expected, or if other problems arise. Prescription Medications: Prednisone 20 mg: take 2 orally every day for 5 days. Dispense ten (10). No refills. OTC Medications: Benadryl (available over the counter): take according to label instructions. Understanding of the discharge instructions verbalized by patient. Follow-up with: Joe Andrews MD, [facility], [phone], [facility], [address] [place] [address] Follow up in five days if not better. ADDITIONAL INFORMATION Dermatitis (Non-Specific) Dermatitis is an inflammation of the skin. The exact cause of your rash is not certain. However, this rash does not appear to be an infection or contagious illness. Taking care of the rash at home should help relieve your symptoms. Home Care: Keep the areas of rash clean by washing it daily. This also helps to keep the skin moist. Use a neutral pH soap such as Dove or Lever 2000. Apply a moisturizing lotion after bathing to prevent dry skin. Avoid skin irritants (wool or silk clothing, grease, oils, some medicines, harsh soaps, and detergents). Wear absorbent, soft fabrics next to the skin rather than rough or scratchy materials. Unless another medicine was prescribed, you may use Hydrocortisone cream (which you can get without a prescription) to reduce the inflammation. Follow Up: Make an appointment with your doctor in the next 1 to 2 weeks if your symptoms do not improve with the above measures. Get Prompt Medical Attention if any of the following occur: Increasing area of redness or pain in the skin Yellow crusts or drainage from the rash Joint pain New rash that appears in other areas of the body Fever of 100.4F (38C) or higher, or as directed by your healthcare provider Prednisone Oral tablet What is this medicine? PREDNISONE (PRED ni sone) is a corticosteroid. It is commonly used to treat inflammation of the skin, joints, lungs, and other organs. Common conditions treated include asthma, allergies, and arthritis. It is also used for other conditions, such as blood disorders and diseases of the adrenal glands. How should I use this medicine? Take this medicine by mouth with a glass of water. Follow the directions on the prescription label. Take this medicine with food. If you are taking this medicine once a day, take it in the morning. Do not take more medicine than you are told to take. Do not suddenly stop taking your medicine because you may develop a severe reaction. Your doctor will tell you how much medicine to take. If your doctor wants you to stop the medicine, the dose may be slowly lowered over time to avoid any side effects. Talk to your english lecturer regarding the use of this medicine in children. Special care may be needed. What side effects may I notice from receiving this medicine? Side effects that you should report to your doctor or health care worker as soon as possible: allergic reactions like skin rash, itching or hives, swelling of the face, lips, or tongue changes in emotions or moods changes in vision depressed mood eye pain fever or chills, cough, sore throat, pain or difficulty passing urine increased thirst swelling of ankles, feet Side effects that usually do not require medical attention (report to your doctor or health care worker if they continue or are bothersome): confusion, excitement, restlessness headache nausea, vomiting skin problems, acne, thin and shiny skin trouble sleeping weight gain What may interact with this medicine? Do not take this medicine with any of the following medications: metyrapone mifepristone This medicine may also interact with the following medications: aminoglutethimide amphotericin B aspirin and aspirin-like medicines barbiturates certain medicines for diabetes, like glipizide or glyburide cholestyramine cholinesterase inhibitors cyclosporine digoxin diuretics ephedrine female hormones, like estrogens and control pills isoniazid ketoconazole NSAIDS, medicines for pain and inflammation, like ibuprofen or naproxen phenytoin rifampin toxoids vaccines warfarin What if I miss a dose? If you miss a dose, take it as soon as you can. If it is almost time for your next dose, talk to your doctor or health care worker. You may need to miss a dose or take an extra dose. Do not take double or extra doses without advice. Where should I keep my medicine? Keep out of the reach of children. Store at room temperature between 15 and 30 degrees C (59 and 86 degrees F). Protect from light. Keep container tightly closed. Throw away any unused medicine after the expiration date. What should I tell my health care provider before I take this medicine? They need to know if you have any of these conditions: Whitehall's syndrome diabetes glaucoma heart disease high blood pressure infection (especially a virus infection such as chickenpox, cold sores, or herpes) kidney disease liver disease mental illness myasthenia gravis osteoporosis seizures stomach or intestine problems thyroid disease an unusual or allergic reaction to lactose, prednisone, other medicines, foods, dyes, or preservatives or trying to get breast-feeding What should I watch for while using this medicine? Visit your doctor or health care worker for regular checks on your progress. If you are taking this medicine over a prolonged period, carry an identification card with your name and address, the type and dose of your medicine, and your doctor's name and address. This medicine may increase your risk of getting an infection. Tell your doctor or health care worker if you are around anyone with measles or chickenpox, or if you develop sores or blisters that do not heal properly. If you are going to have surgery, tell your doctor or health care worker that you have taken this medicine within the last twelve months. Ask your doctor or health care worker about your diet. You may need to lower the amount of salt you eat. This medicine may affect blood sugar levels. If you have diabetes, check with your doctor or health care worker before you change your diet or the dose of your diabetic medicine. Diphenhydramine Tannate Chewable tablet What is this medicine? DIPHENHYDRAMINE (dye jacob cam) is an antihistamine. It is used to treat the symptoms of an allergic reaction. How should I use this medicine? Take this medicine by mouth. Chew it completely before swallowing. Follow the directions on the prescription label. Take your doses at regular intervals. Do not take your medicine more often than directed. Talk to your english lecturer regarding the use of this medicine in children. While this drug may be prescribed for children as young as 6 years old for selected conditions, precautions do apply. Patients over 65 years old may have a stronger reaction and need a smaller dose. What side effects may I notice from receiving this medicine? Side effects that you should report to your doctor or health care worker as soon as possible: allergic reactions like skin rash, itching or hives, swelling of the face, lips, or tongue changes in vision confused, agitated, nervous irregular or fast heartbeat tremor trouble passing urine unusual bleeding or bruising unusually weak or tired Side effects that usually do not require medical attention (report to your doctor or health care worker if they continue or are bothersome): constipation, diarrhea drowsy headache loss of appetite stomach upset, vomiting thick mucous What may interact with this medicine? Do not take this medicine with any of the following medications: MAOIs like Carbex, Eldepryl, Marplan, Nardil, and Parnate This medicine may also interact with the following medications: alcohol barbiturates, like phenobarbital medicines for bladder spasm like oxybutynin, tolterodine medicines for blood pressure medicines for depression, anxiety, or psychotic disturbances medicines for movement abnormalities or Parkinson's disease medicines for sleep other medicines for cold, cough or allergy some medicines for the stomach like chlordiazepoxide, dicyclomine What if I miss a dose? If you miss a dose, take it as soon as you can. If it is almost time for your next dose, take only that dose. Do not take double or extra doses. Where should I keep my medicine? Keep out of the reach of children. Store at room temperature between 15 and 30 degrees C (59 and 86 degrees F). Keep container closed tightly. Throw away any unused medicine after the expiration date. What should I tell my health care provider before I take this medicine? They need to know if you have any of these conditions: glaucoma high blood pressure heart disease liver disease lung or breathing disease, like asthma pain or difficulty passing urine phenylketonuria prostate trouble ulcers or other stomach problems an unusual or allergic reaction to diphenhydramine, sulfites, other medicines foods, dyes, or preservatives or trying to get breast-feeding What should I watch for while using this medicine? Visit your doctor or health care worker for regular check ups. Tell your doctor or healthcare professional if your symptoms do not start to get better or if they get worse. Your mouth may get dry. Chewing sugarless gum or sucking hard candy, and drinking plenty of water may help. Contact your doctor if the problem does not go away or is severe. This medicine may cause dry eyes and blurred vision. If you wear contact lenses you may feel some discomfort. Lubricating drops may help. See your eye doctor if the problem does not go away or is severe. You may get drowsy or dizzy. Do not drive, use machinery, or do anything that needs mental alertness until you know how this medicine affects you. Do not stand or sit up quickly, especially if you are an older patient. This reduces the risk of dizzy or fainting spells. Alcohol may interfere with the effect of this medicine. Avoid alcoholic drinks. You have been given the following additional information: Dermatitis, Non-Specific Prednisone Oral tablet Diphenhydramine Tannate Chewable tablet No driving or operating machinery while taking medication. (Electronically signed by Ronald Arboleda MD 07/18/2016 8:11)
--- NOTE | 2016-07-18 08:11 | ED MAR SUMMARY ---
..... Medication Administration Record [facility] [address] [place], [place] [id number] Patient: REBECCA SIFUENTES Ramon Visit ID: [id number] 31y, F Weight: 127.0 kg Height/Length: 66 in BMI: 45.2 ALLERGIES: Latex
--- NOTE | 2016-07-18 08:11 | ED DISCHARGE INSTRUCTIONS ---
Patient: REBECCA SIFUENTES General Instructions [facility] VisitID: [id number] [place] [address] 31y, F Registration Date/Time: 07/18/2016 Skin rash. INSTRUCTIONS No driving or operating machinery while taking medication. Warnings: GENERAL WARNINGS: Return or contact your physician immediately if your condition worsens or changes unexpectedly, if not improving as expected, or if other problems arise. Prescription Medications: Prednisone 20 mg: take 2 orally every day for 5 days. Dispense ten (10). No refills. OTC Medications: Benadryl (available over the counter): take according to label instructions. Understanding of the discharge instructions verbalized by patient. Follow-up with: Joe Andrews MD, [facility], [phone], [facility], [address] [place] [address] Follow up in five days if not better. ADDITIONAL INFORMATION Dermatitis (Non-Specific) Dermatitis is an inflammation of the skin. The exact cause of your rash is not certain. However, this rash does not appear to be an infection or contagious illness. Taking care of the rash at home should help relieve your symptoms. Home Care: Keep the areas of rash clean by washing it daily. This also helps to keep the skin moist. Use a neutral pH soap such as Dove or Lever 2000. Apply a moisturizing lotion after bathing to prevent dry skin. Avoid skin irritants (wool or silk clothing, grease, oils, some medicines, harsh soaps, and detergents). Wear absorbent, soft fabrics next to the skin rather than rough or scratchy materials. Unless another medicine was prescribed, you may use Hydrocortisone cream (which you can get without a prescription) to reduce the inflammation. Follow Up: Make an appointment with your doctor in the next 1 to 2 weeks if your symptoms do not improve with the above measures. Get Prompt Medical Attention if any of the following occur: Increasing area of redness or pain in the skin Yellow crusts or drainage from the rash Joint pain New rash that appears in other areas of the body Fever of 100.4F (38C) or higher, or as directed by your healthcare provider Prednisone Oral tablet What is this medicine? PREDNISONE (PRED ni sone) is a corticosteroid. It is commonly used to treat inflammation of the skin, joints, lungs, and other organs. Common conditions treated include asthma, allergies, and arthritis. It is also used for other conditions, such as blood disorders and diseases of the adrenal glands. How should I use this medicine? Take this medicine by mouth with a glass of water. Follow the directions on the prescription label. Take this medicine with food. If you are taking this medicine once a day, take it in the morning. Do not take more medicine than you are told to take. Do not suddenly stop taking your medicine because you may develop a severe reaction. Your doctor will tell you how much medicine to take. If your doctor wants you to stop the medicine, the dose may be slowly lowered over time to avoid any side effects. Talk to your chaser tar regarding the use of this medicine in children. Special care may be needed. What side effects may I notice from receiving this medicine? Side effects that you should report to your doctor or health urgent care technician as soon as possible: allergic reactions like skin rash, itching or hives, swelling of the face, lips, or tongue changes in emotions or moods changes in vision depressed mood eye pain fever or chills, cough, sore throat, pain or difficulty passing urine increased thirst swelling of ankles, feet Side effects that usually do not require medical attention (report to your doctor or health urgent care technician if they continue or are bothersome): confusion, excitement, restlessness headache nausea, vomiting skin problems, acne, thin and shiny skin trouble sleeping weight gain What may interact with this medicine? Do not take this medicine with any of the following medications: metyrapone mifepristone This medicine may also interact with the following medications: aminoglutethimide amphotericin B aspirin and aspirin-like medicines barbiturates certain medicines for diabetes, like glipizide or glyburide cholestyramine cholinesterase inhibitors cyclosporine digoxin diuretics ephedrine female hormones, like estrogens and control pills isoniazid ketoconazole NSAIDS, medicines for pain and inflammation, like ibuprofen or naproxen phenytoin rifampin toxoids vaccines warfarin What if I miss a dose? If you miss a dose, take it as soon as you can. If it is almost time for your next dose, talk to your doctor or health urgent care technician. You may need to miss a dose or take an extra dose. Do not take double or extra doses without advice. Where should I keep my medicine? Keep out of the reach of children. Store at room temperature between 15 and 30 degrees C (59 and 86 degrees F). Protect from light. Keep container tightly closed. Throw away any unused medicine after the expiration date. What should I tell my health care provider before I take this medicine? They need to know if you have any of these conditions: Elwood's syndrome diabetes glaucoma heart disease high blood pressure infection (especially a virus infection such as chickenpox, cold sores, or herpes) kidney disease liver disease mental illness myasthenia gravis osteoporosis seizures stomach or intestine problems thyroid disease an unusual or allergic reaction to lactose, prednisone, other medicines, foods, dyes, or preservatives or trying to get breast-feeding What should I watch for while using this medicine? Visit your doctor or health urgent care technician for regular checks on your progress. If you are taking this medicine over a prolonged period, carry an identification card with your name and address, the type and dose of your medicine, and your doctor's name and address. This medicine may increase your risk of getting an infection. Tell your doctor or health urgent care technician if you are around anyone with measles or chickenpox, or if you develop sores or blisters that do not heal properly. If you are going to have surgery, tell your doctor or health urgent care technician that you have taken this medicine within the last twelve months. Ask your doctor or health urgent care technician about your diet. You may need to lower the amount of salt you eat. This medicine may affect blood sugar levels. If you have diabetes, check with your doctor or health urgent care technician before you change your diet or the dose of your diabetic medicine. Diphenhydramine Tannate Chewable tablet What is this medicine? DIPHENHYDRAMINE (dye jacob cam) is an antihistamine. It is used to treat the symptoms of an allergic reaction. How should I use this medicine? Take this medicine by mouth. Chew it completely before swallowing. Follow the directions on the prescription label. Take your doses at regular intervals. Do not take your medicine more often than directed. Talk to your chaser tar regarding the use of this medicine in children. While this drug may be prescribed for children as young as 6 years old for selected conditions, precautions do apply. Patients over 65 years old may have a stronger reaction and need a smaller dose. What side effects may I notice from receiving this medicine? Side effects that you should report to your doctor or health urgent care technician as soon as possible: allergic reactions like skin rash, itching or hives, swelling of the face, lips, or tongue changes in vision confused, agitated, nervous irregular or fast heartbeat tremor trouble passing urine unusual bleeding or bruising unusually weak or tired Side effects that usually do not require medical attention (report to your doctor or health urgent care technician if they continue or are bothersome): constipation, diarrhea drowsy headache loss of appetite stomach upset, vomiting thick mucous What may interact with this medicine? Do not take this medicine with any of the following medications: MAOIs like Carbex, Eldepryl, Marplan, Nardil, and Parnate This medicine may also interact with the following medications: alcohol barbiturates, like phenobarbital medicines for bladder spasm like oxybutynin, tolterodine medicines for blood pressure medicines for depression, anxiety, or psychotic disturbances medicines for movement abnormalities or Parkinson's disease medicines for sleep other medicines for cold, cough or allergy some medicines for the stomach like chlordiazepoxide, dicyclomine What if I miss a dose? If you miss a dose, take it as soon as you can. If it is almost time for your next dose, take only that dose. Do not take double or extra doses. Where should I keep my medicine? Keep out of the reach of children. Store at room temperature between 15 and 30 degrees C (59 and 86 degrees F). Keep container closed tightly. Throw away any unused medicine after the expiration date. What should I tell my health care provider before I take this medicine? They need to know if you have any of these conditions: glaucoma high blood pressure heart disease liver disease lung or breathing disease, like asthma pain or difficulty passing urine phenylketonuria prostate trouble ulcers or other stomach problems an unusual or allergic reaction to diphenhydramine, sulfites, other medicines foods, dyes, or preservatives or trying to get breast-feeding What should I watch for while using this medicine? Visit your doctor or health urgent care technician for regular check ups. Tell your doctor or healthcare professional if your symptoms do not start to get better or if they get worse. Your mouth may get dry. Chewing sugarless gum or sucking hard candy, and drinking plenty of water may help. Contact your doctor if the problem does not go away or is severe. This medicine may cause dry eyes and blurred vision. If you wear contact lenses you may feel some discomfort. Lubricating drops may help. See your eye doctor if the problem does not go away or is severe. You may get drowsy or dizzy. Do not drive, use machinery, or do anything that needs mental alertness until you know how this medicine affects you. Do not stand or sit up quickly, especially if you are an older patient. This reduces the risk of dizzy or fainting spells. Alcohol may interfere with the effect of this medicine. Avoid alcoholic drinks. You have been given the following additional information: Dermatitis, Non-Specific Prednisone Oral tablet Diphenhydramine Tannate Chewable tablet No driving or operating machinery while taking medication. (Electronically signed by Ronald Arboleda MD 07/18/2016 8:11)
--- NOTE | 2016-07-18 08:11 | ED MED RECONCILIATION SUMMARY ---
Patient: REBECCA SIFUENTES Medication Reconciliation Report [facility] VisitID: [id number] [address] [place] [address] 31y, F Registration Date/Time: 07/18/2016 Weight: 127.0 kg Height/Length: 66 in. BMI: 45.2 ALLERGIES: Latex The patient's Home Medications are listed below: NONE. The source(s) of the original Home Medication information: Not obtained. The following Medications were given to the patient in the Emergency Department: None. The following Medications were prescribed to the patient: Benadryl (available over the counter): take according to label instructions. -- Ronald Arboleda MD Prednisone 20 mg: take 2 orally every day for 5 days. Dispense ten (10). No refills. -- Ronald Arboleda MD
--- NOTE | 2016-07-18 08:11 | ED MAR SUMMARY ---
..... Medication Administration Record [facility] [address] [place], [place] [id number] Patient: REBECCA SIFUENTES Ramon Visit ID: [id number] 31y, F Weight: 127.0 kg Height/Length: 66 in BMI: 45.2 ALLERGIES: Latex
== END 2016-07-18 04:00 | disposition home or self-care (01) ==
LOC: ED SRH 03:36
DX: R21 Rash and other nonspecific skin eruption (principal); Z91.040 Latex allergy status

== ENCOUNTER 2016-09-13 12:53 | Emergency (ER) | payer OTHER ==
--- NOTE | 2016-09-13 13:46 | ED NURSING NOTES ---
Clinical Report - Nurses [facility] [place] [address] 09/13/2016 12:54 Patient: REBECCA SIFUENTES TRIAGE Triage time 13:Sep 13 2016. Acuity: LEVEL 3. Chief Complaint: ABDOMINAL PAIN, NAUSEA, VOMITING and DIARRHEA. Alert. No acute distress. SEPSIS SCREEN: Sepsis Screen. Negative (no infection suspected/documented). --13:10 Gavin Cooper R.N. 13:12 09/13/16. BP: 133/61. HR: 64. RR: 18. O2 saturation: 98% on room air. Temp: 97.6 F. Pain level now: 07/06. --13:13 Gavin Cooper R.N. Weight: 127 kg stated. Height/Length: 66 inches Per Patient. BMI: 45.2. --13:07 Gavin Cooper R.N. Medications None. --13:08 Gavin Cooper R.N. Allergies Latex. --13:08 Gavin Cooper R.N. History Arrived by private vehicle. Historian: patient. Accompanied by family. This started yesterday. No fever. Last oral intake by patient was last night. 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 PAST MEDICAL HX: Immunizations: up-to-date. Last normal menstrual period- 2 weeks ago. SOCIAL HX: Never smoker. Occasional alcohol use. No drug use. No recent travel. No infectious disease exposure. No known contact with a sick individual. ABUSE ASSESSMENT: Abuse assessment: The patient was asked "Do you feel safe in your home?". No report of abuse. SELF HARM ASSESSMENT: A self harm assessment was performed. The patient answered "no" to the question "Have you recently felt down, depressed, or hopeless?". FALL RISK ASSESSMENT: Fall risk assessment completed. No fall risk identified. NUTRITIONAL RISK ASSESSMENT: The nutritional risk assessment revealed no deficiencies. FUNCTIONAL ASSESSMENT: Functional assessment: no impairments noted. LEARNING NEEDS ASSESSMENT: The learning needs assessment revealed no barriers. SKIN INTEGRITY ASSESSMENT: Skin integrity risk assessment completed. No skin integrity risk identified. --13:10 Gavin Cooper R.N. PROBLEMS: Skin Rash. Sprain. Dental Pain. Seizure. Acute Pain. URI. Pyelonephritis. Sinusitis. Bronchitis. --13:08 Gavin Cooper R.N. Facial Cellulitis [RuleOut]. Herpes Labialis [RuleOut]. --13:08 Gavin Cooper R.N. ADDITIONAL SURGERIES: Cholecystectomy. . Ectopic [2010]. --13:08 Gavin Cooper R.N. Interventions ID band on patient. To room. --13:10 Gavin Cooper R.N. PHYSICAL ASSESSMENT Ambulatory to room. ( Pt reporting "discomfort" to her epigastric area, pain rated 3/10.). GENERAL / NEURO / PSYCH: Alert. Oriented X 4. Appears in no acute distress. HEENT: Mucous membranes are pink. RESPIRATORY: Respirations not labored. GI / : Obesity. Abdomen soft and nontender. Bowel sounds within normal limits. SKIN: Skin is warm and dry. --13:16 Gavin Cooper R.N. NURSING PROGRESS NOTES The plan of care for this patient has been created. Patient gowned. Head of bed elevated. Reassurance given. Two patient identifiers checked. Call light placed in reach. Bed placed in lowest position. Patient ready for evaluation- chart flagged. ( Pt's family at bedside.). --13:16 Gavin Cooper R.N. 13:44 09/13/2016 Zofran ODT (Ondansetron) PO Oral Disintegrating Tablets 4 mg given. Allergies verified and confirmed 5 rights. --13:44 Gavin Cooper R.N. ( Pt seen by BLOCK BREAKER, administered Zofran as ordered.). --13:45 Gavin Cooper R.N. DISPOSITION / DISCHARGE 14:03 09/13/16. BP: 112/64. HR: 65. RR: 16. O2 saturation: 99% on room air. Temp: deferred. Pain level now: 07/06. --14:03 Gavin Cooper R.N. Departure time: 14:Sep 13 2016. Condition at departure: stable. The goals identified in the patient's plan of care were met. No learning barriers present. Discharge instructions provided and reviewed with the patient and spouse. Reviewed medication(s) side effects, precautions, dosing and course information. Prescription(s) given to the patient (Jackelin ODT). Reviewed clear liquid diet, bland diet and need for increased fluid intake. Work note given. Patient and spouse verbalized understanding. Written instructions provided in Macedonian. The patient was discharged home and accompanied by spouse. She left the Emergency Department ambulatory and via private vehicle. Spouse driving. ( Pt ambulatory, VSS, afebrile, appropriate for discharge, family accompanied out the door.). --14:05 Gavin Cooper R.N. Locked/Released at 09/13/2016 15:08 by Gavin Cooper R.N.
--- NOTE | 2016-09-13 13:46 | ED ORDER SUMMARY ---
..... Patient: REBECCA SIFUENTES OrderSheet [facility] VisitID: [id number] [address] [place] [address] 31y, F Registration Date/Time: 09/13/2016 ORDER SHEET Weight: 127.0 kg (stated) Allergies: Latex GENERAL ORDERS: MEDICATION ORDERS: Zofran ODT PO 4 mg (NOW) (13:42 09/13/2016 David A.R.N.P.) (13:44 Destiny Gerardo.Camila.) IV FLUIDS: ORDER SHEET NOTES: [Electronically signed by Melody CastleR.N.PWalter (14:29 09/13/2016)] [Electronically signed by Gavin Cooper R.N. (15:08 09/13/2016)] [Electronically locked/signed by Gavin Cooper R.N. (15:08 09/13/2016)]
--- NOTE | 2016-09-13 13:46 | ED ORDER SUMMARY ---
..... Patient: REBECCA SIFUENTES OrderSheet [facility] VisitID: [id number] [address] [place] [address] 31y, F Registration Date/Time: 09/13/2016 ORDER SHEET Weight: 127.0 kg (stated) Allergies: Latex GENERAL ORDERS: MEDICATION ORDERS: Zofran ODT PO 4 mg (NOW) (13:42 09/13/2016 David A.R.N.P.) (13:44 Destiny Gerardo.Camila.) IV FLUIDS: ORDER SHEET NOTES: [Electronically signed by Melody CastleR.N.PWalter (14:29 09/13/2016)] [Electronically signed by Gavin Cooper R.N. (15:08 09/13/2016)] [Electronically locked/signed by Gavin Cooper R.N. (15:08 09/13/2016)]
--- NOTE | 2016-09-13 13:46 | ED NURSING NOTES ---
Clinical Report - Nurses [facility] [place] [address] 09/13/2016 12:54 Patient: REBECCA SIFUENTES TRIAGE Triage time 13:Sep 13 2016. Acuity: LEVEL 3. Chief Complaint: ABDOMINAL PAIN, NAUSEA, VOMITING and DIARRHEA. Alert. No acute distress. SEPSIS SCREEN: Sepsis Screen. Negative (no infection suspected/documented). --13:10 Gavin Cooper R.N. 13:12 09/13/16. BP: 133/61. HR: 64. RR: 18. O2 saturation: 98% on room air. Temp: 97.6 F. Pain level now: 07/06. --13:13 Gavin Cooper R.N. Weight: 127 kg stated. Height/Length: 66 inches Per Patient. BMI: 45.2. --13:07 Gavin Cooper R.N. Medications None. --13:08 Gavin Cooper R.N. Allergies Latex. --13:08 Gavin Cooper R.N. History Arrived by private vehicle. Historian: patient. Accompanied by family. This started yesterday. No fever. Last oral intake by patient was last night. 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 PAST MEDICAL HX: Immunizations: up-to-date. Last normal menstrual period- 2 weeks ago. SOCIAL HX: Never smoker. Occasional alcohol use. No drug use. No recent travel. No infectious disease exposure. No known contact with a sick individual. ABUSE ASSESSMENT: Abuse assessment: The patient was asked "Do you feel safe in your home?". No report of abuse. SELF HARM ASSESSMENT: A self harm assessment was performed. The patient answered "no" to the question "Have you recently felt down, depressed, or hopeless?". FALL RISK ASSESSMENT: Fall risk assessment completed. No fall risk identified. NUTRITIONAL RISK ASSESSMENT: The nutritional risk assessment revealed no deficiencies. FUNCTIONAL ASSESSMENT: Functional assessment: no impairments noted. LEARNING NEEDS ASSESSMENT: The learning needs assessment revealed no barriers. SKIN INTEGRITY ASSESSMENT: Skin integrity risk assessment completed. No skin integrity risk identified. --13:10 Gavin Cooper R.N. PROBLEMS: Skin Rash. Sprain. Dental Pain. Seizure. Acute Pain. URI. Pyelonephritis. Sinusitis. Bronchitis. --13:08 Gavin Cooper R.N. Facial Cellulitis [RuleOut]. Herpes Labialis [RuleOut]. --13:08 Gavin Cooper R.N. ADDITIONAL SURGERIES: Cholecystectomy. . Ectopic [2010]. --13:08 Gavin Cooper R.N. Interventions ID band on patient. To room. --13:10 Gavin Cooper R.N. PHYSICAL ASSESSMENT Ambulatory to room. ( Pt reporting "discomfort" to her epigastric area, pain rated 3/10.). GENERAL / NEURO / PSYCH: Alert. Oriented X 4. Appears in no acute distress. HEENT: Mucous membranes are pink. RESPIRATORY: Respirations not labored. GI / : Obesity. Abdomen soft and nontender. Bowel sounds within normal limits. SKIN: Skin is warm and dry. --13:16 Gavin Cooper R.N. NURSING PROGRESS NOTES The plan of care for this patient has been created. Patient gowned. Head of bed elevated. Reassurance given. Two patient identifiers checked. Call light placed in reach. Bed placed in lowest position. Patient ready for evaluation- chart flagged. ( Pt's family at bedside.). --13:16 Gavin Cooper R.N. 13:44 09/13/2016 Zofran ODT (Ondansetron) PO Oral Disintegrating Tablets 4 mg given. Allergies verified and confirmed 5 rights. --13:44 Gavin Cooper R.N. ( Pt seen by PHARMACOLOGY ASSOCIATE, administered Zofran as ordered.). --13:45 Gavin Cooper R.N. DISPOSITION / DISCHARGE 14:03 09/13/16. BP: 112/64. HR: 65. RR: 16. O2 saturation: 99% on room air. Temp: deferred. Pain level now: 07/06. --14:03 Gavin Cooper R.N. Departure time: 14:Sep 13 2016. Condition at departure: stable. The goals identified in the patient's plan of care were met. No learning barriers present. Discharge instructions provided and reviewed with the patient and spouse. Reviewed medication(s) side effects, precautions, dosing and course information. Prescription(s) given to the patient (Jackelin ODT). Reviewed clear liquid diet, bland diet and need for increased fluid intake. Work note given. Patient and spouse verbalized understanding. Written instructions provided in Turkmen. The patient was discharged home and accompanied by spouse. She left the Emergency Department ambulatory and via private vehicle. Spouse driving. ( Pt ambulatory, VSS, afebrile, appropriate for discharge, family accompanied out the door.). --14:05 Gavin Cooper R.N. Locked/Released at 09/13/2016 15:08 by Gavin Cooper R.N.
--- NOTE | 2016-09-13 13:46 | ED CLINICAL REPORT ---
Clinical Report - Physicians/Mid Levels [facility] [address] [place] [address] 09/13/2016 12:54 Patient: REBECCA SIFUENTES Time Seen: 13:26; initial patient contact, initial documentation, patient care assumed. Arrived- By private vehicle. Historian- patient and spouse. HISTORY OF PRESENT ILLNESS Chief Complaint: VOMITING and DIARRHEA. This started yesterday and is still present but is improving. It was abrupt in onset. No recent travel. She has had mild nausea. She has had vomiting. The vomiting has occurred twice. No bilious emesis, feculent emesis, blood-tinged emesis, coffee-grounds emesis or frankly bloody emesis. No unusually dark emesis. She has had diarrhea. This has occurred only once. No black stools, bloody stools, constipation, flank pain or history of possible bad food exposure. No known contact with a sick individual or change in routine. She has had abdominal pain (almost gone now). The pain is described as located in the epigastrium. Has not recently been camping or on antibiotics. The illness is described as mild. Similar symptoms previously: None. Recent medical care: Not recently seen/assessed. REVIEW OF SYSTEMS No fever, difficulty with urination, dark urine, dizziness or chest pain. No difficulty breathing. Denies current . All systems otherwise negative, except as recorded above. PAST HISTORY See nurses notes. PROBLEMS: Skin Rash. Sprain. Dental Pain. Seizure. Acute Pain. URI. Pyelonephritis. Sinusitis. Bronchitis. --13:08 Gavin Cooper R.N. Facial Cellulitis [RuleOut]. Herpes Labialis [RuleOut]. --13:08 Gavin Cooper R.N. ADDITIONAL SURGERIES: Cholecystectomy. . Ectopic [2010]. --13:08 Gavin Cooper R.N. SOCIAL HISTORY Never smoker. Occasional alcohol use. No drug use. No recent travel. Is a local resident. FAMILY HISTORY Negative. ADDITIONAL NOTES The nursing notes have been reviewed with agreement regarding the chief complaint, HPI, ROS, PMH and patient medications and allergies. PHYSICAL EXAM Vital Signs: 09/13/2016 13:12 BP: 133/61. HR: 64. RR: 18. O2 saturation: 98%. Temp: 97.6 F. Pain level now: 07/06. Have been reviewed as normal and appear to be correct. Appearance: Alert. Oriented X3. No acute distress. Eyes: Pupils equal, round and reactive to light. Eyes normal inspection. Neck: Normal inspection. Neck supple. CVS: Normal heart rate and rhythm. Heart sounds normal. Pulses normal. Respiratory: No respiratory distress. Breath sounds normal. Abdomen: Soft and nontender. Bowel sounds normal. No organomegaly. No mass. Severely obese. Back: Normal inspection. Skin: Skin warm and dry. Normal skin color. No rash. Normal skin turgor. Extremities: Extremities exhibit normal ROM. No lower extremity edema. Neuro: Oriented X 3. No motor deficit. No sensory deficit. LABS, X-RAYS, AND EKG X-Rays: LS spine series negative. PROGRESS AND PROCEDURES Course of Care: tx options discussed with doing ivf and blood work, or trying oral first, pt wanted to try oral route first, which seems reasonable, pt does not appear dehydrated, and vital signs normal. Patient and spouse counseled in person regarding the patient's stable condition and diagnosis. Differential Diagnosis: I considered gastritis, peptic ulcer disease, gastroesophageal reflux disease, gastroparesis, Crohn's disease, colon cancer, gastroenteritis, pancreatitis, viral syndrome, enterocolitis, urinary tract infection, hepatitis, sepsis and as a possible cause of vomiting in this patient. This is a partial list of diagnoses considered. Above considerations are based on history and physical exam. Differential diagnosis was discussed with patient. Disposition: Discharged home in good and improved condition (13:45). Condition: good and stable. CLINICAL IMPRESSION Acute noninfectious gastroenteritis. INSTRUCTIONS Do not work today, tomorrow. Take clear liquids only (frequent sips) for the next 24 hours until better. May continue medications with sips only. Advance diet as tolerated. Avoid. Warnings: GENERAL WARNINGS: Return or contact your physician immediately if your condition worsens or changes unexpectedly, if not improving as expected, or if other problems arise. SPECIFICALLY, return if you develop pain in the abdomen or pelvis, fever, the inability to keep fluids down, blood in vomitus, blood in diarrhea, fainting or lightheadedness. Prescription Medications: Zofran 4 mg: Take 1 orally every six hours as needed for nausea/vomiting. Dispense ten (10). No refills. Substitution is permissible. Follow-up: Follow up with your doctor in about two days even if well. Call for an appointment. Summary of care provided to patient. Understanding of the discharge instructions verbalized by patient. (Electronically signed by Melody Castle A.R.N.P. 09/13/2016 14:29)
--- NOTE | 2016-09-13 15:09 | ED DISCHARGE INSTRUCTIONS ---
Patient: REBECCA SIFUENTES General Instructions [facility] VisitID: [id number] [address] [place] [address] 31y, F Registration Date/Time: 09/13/2016 Acute noninfectious gastroenteritis. INSTRUCTIONS Do not work today, tomorrow. Take clear liquids only (frequent sips) for the next 24 hours until better. May continue medications with sips only. Advance diet as tolerated. Avoid. Warnings: GENERAL WARNINGS: Return or contact your physician immediately if your condition worsens or changes unexpectedly, if not improving as expected, or if other problems arise. SPECIFICALLY, return if you develop pain in the abdomen or pelvis, fever, the inability to keep fluids down, blood in vomitus, blood in diarrhea, fainting or lightheadedness. Prescription Medications: Zofran 4 mg: Take 1 orally every six hours as needed for nausea/vomiting. Dispense ten (10). No refills. Substitution is permissible. Follow-up: Follow up with your doctor in about two days even if well. Call for an appointment. Summary of care provided to patient. Understanding of the discharge instructions verbalized by patient. ADDITIONAL INFORMATION Gastroenteritis [Non-Infectious, 6 Yr-Adult] Your symptoms today are coming from the intestinal tract. This may occur as a result of food sensitivity, inflammation of the GI tract, medicines, stress or other causes not related to infection. This may last from 1-3 days. Antibiotics are not effective, but simple home treatment will be helpful. Home Care: If symptoms are severe, rest at home for the next 24 hours. You may use acetaminophen (Tylenol) or ibuprofen (Motrin, Advil) to control fever, unless another medicine was prescribed. [NOTE: If you have chronic liver or kidney disease or ever had a stomach ulcer or GI bleeding, talk with your doctor before using these medicines.] (Aspirin should never be used in anyone under 18 years of age who is ill with a fever. It may cause severe liver damage.) Avoid tobacco and alcohol use, which may make your symptoms worse. If medicines for diarrhea or vomiting were prescribed, take only as directed. Once vomiting stops, then follow these guidelines: During The First 12-24 Hours follow the diet below: gingerale, mineral water (plain or flavored), decaffeinated tea and coffee. During The Next 24 Hours you may add the following to the above: DURING THE NEXT 24 HOURS Gradually resume a normal diet, as you feel better and your symptoms lessen. Follow Up with your doctor as advised if you are not improving over the next 2-3 days. If a stool (diarrhea) sample was taken, you may call in 2 days (or as directed) for the results. Get Prompt Medical Attention if any of the following occur: Increasing abdominal pain or constant lower right abdominal pain Continued vomiting (unable to keep liquids down) Frequent diarrhea (more than 5 times a day) Blood in vomit or stool (black or red color) Reduced oral intake Dark urine, reduced urine output Weakness, dizziness, fainting Drowsiness, confusion, stiff neck or seizure Fever of 100.4F (38C) or higher, or as directed by your healthcare provider New rash Clear Liquid Diet Clear liquids are any liquid that you can see through as well as those that are very easy to digest. This is used while the body is recovering from irritation or infection of the stomach or intestinal tract. It may also be used before special procedures or surgery. This diet is to be used no more than three days. You may include the following items. Adults Adults should drink a total of 23 quarts of liquid per day. It may be easier to drink small frequent servings rather than a few large ones. Liquids can include: Fruit juices.Strained orange juice or lemonade (no pulp), apple, grape and cranberry juice, clear fruit drinks, sports drinks Beverages.Sport drinks, sodas, mineral water (plain or flavored), tea, black coffee, liquid gelatin (add twice the recommended amount of water) Soups.Clear broth, consomm, bouillon Desserts.Plain gelatin, popsicles, fruit juice bars Children Over 2 years old The following liquids are acceptable for children over age 2: Fruit juices.Strained orange juice or lemonade (no pulp), apple, grape and cranberry juice, clear fruit drinks Beverages. Sports drinks, sodas, mineral water (plain or flavored), tea, liquid gelatin (add twice the recommended amount of water) Soups. Clear broth, consomm, bouillon Desserts. Plain gelatin, popsicles, fruit juice bars Children under 2 years old Oral rehydration fluids such are available at drug stores and most grocery stores without a prescription. Lima Diet A bland diet is used for patients with an upset stomach. It consists of foods that are mild and easy to digest. It is better to eat small frequent meals rather than three large meals a day. BEVERAGES OK: Fruit juices, non-caffeinated teas and coffee, non-carbonated ferrera AVOID: Carbonated beverage, caffeinated tea and coffee, all alcoholic beverages BREAD OK: Refined white, wheat or rye bread, joan or soda crackers, Cheryl toast, plain rolls, bagels AVOID: Whole-grain bread CEREAL OK: Refined cereals: cooked or ready to eat AVOID: Whole grain cereals and granola, or those containing bran, seeds or nuts DESSERTS OK: Peanut butter and all others except those to "avoid" AVOID: Chocolate, cocoa, coconut, popcorn, nuts, seeds, jam, marmalade FRUITS OK: Canned, cooked, frozen or fresh fruits without seeds or tough skin AVOID: Olives, skin and seeds of fruit MEATS OK: All fresh or preserved meat, fish and fowl AVOID: Any that are prepared with those spices to "avoid" CHEESE & EGGS OK: Eggs, cottage cheese, cream cheese, other cheeses AVOID: All cheeses made with those spices to "avoid" POTATOES & PASTA OK: Potato, rice, macaroni, noodles, spaghetti AVOID: None SOUPS OK: All soups without heavy seasoning AVOID: Soups made with those spices to "avoid" VEGETABLES OK: Canned, cooked, fresh or frozen mildly flavored vegetables without seeds, skins or coarse fiber AVOID: Vegetables prepared with those spices to "avoid"; skin and seeds of vegetables and those with coarse fiber SPICES OK: Salt, lemon and mi'kmaq juice, vinegar, all extracts, my, cinnamon, thyme, mace, allspice, paprika AVOID: [place] powder, cloves, pepper, seed spices, garlic, gravy pickles, highly seasoned salad dressings Clear Liquid Diet Clear liquids are any liquid that you can see through as well as those that are very easy to digest. This is used while the body is recovering from irritation or infection of the stomach or intestinal tract. It may also be used before special procedures or surgery. This diet is to be used no more than three days. You may include the following items. Adults Adults should drink a total of 23 quarts of liquid per day. It may be easier to drink small frequent servings rather than a few large ones. Liquids can include: Fruit juices.Strained orange juice or lemonade (no pulp), apple, grape and cranberry juice, clear fruit drinks, sports drinks Beverages.Sport drinks, sodas, mineral water (plain or flavored), tea, black coffee, liquid gelatin (add twice the recommended amount of water) Soups.Clear broth, consomm, bouillon Desserts.Plain gelatin, popsicles, fruit juice bars Children Over 2 years old The following liquids are acceptable for children over age 2: Fruit juices.Strained orange juice or lemonade (no pulp), apple, grape and cranberry juice, clear fruit drinks Beverages. Sports drinks, sodas, mineral water (plain or flavored), tea, liquid gelatin (add twice the recommended amount of water) Soups. Clear broth, consomm, bouillon Desserts. Plain gelatin, popsicles, fruit juice bars Children under 2 years old Oral rehydration fluids such are available at drug stores and most grocery stores without a prescription. Ondansetron Oral disintegrating tablet What is this medicine? ONDANSETRON (on FIDELIA se andrew) is used to treat nausea and vomiting caused by chemotherapy. It is also used to prevent or treat nausea and vomiting after surgery. How should I use this medicine? These tablets are made to dissolve in the mouth. Do not try to push the tablet through the foil backing. With dry hands, peel away the foil backing and gently remove the tablet. Place the tablet in the mouth and allow it to dissolve, then swallow. While you may take these tablets with water, it is not necessary to do so. Talk to your medical biller/coder regarding the use of this medicine in children. Special care may be needed. What side effects may I notice from receiving this medicine? Side effects that you should report to your doctor or health hearing healthcare practitioner as soon as possible: allergic reactions like skin rash, itching or hives, swelling of the face, lips, or tongue breathing problems dizziness fast or irregular heartbeat feeling faint or lightheaded, falls fever and chills swelling of the hands and feet tightness in the chest Side effects that usually do not require medical attention (report to your doctor or health hearing healthcare practitioner if they continue or are bothersome): constipation or diarrhea headache What may interact with this medicine? Do not take this medicine with any of the following medications: -apomorphine -cisapride -dofetilide -dronedarone -pimozide -thioridazine -ziprasidone This medicine may also interact with the following medications: -carbamazepine -phenytoin -rifampicin -tramadol -other medicines that prolong the QT interval (cause an abnormal heart rhythm) What if I miss a dose? If you miss a dose, take it as soon as you can. If it is almost time for your next dose, take only that dose. Do not take double or extra doses. Where should I keep my medicine? Keep out of the reach of children. Store between 2 and 30 degrees C (36 and 86 degrees F). Throw away any unused medicine after the expiration date. What should I tell my health care provider before I take this medicine? They need to know if you have any of these conditions: heart disease history of irregular heartbeat liver disease low levels of magnesium or potassium in the blood an unusual or allergic reaction to ondansetron, granisetron, other medicines, foods, dyes, or preservatives or trying to get breast-feeding What should I watch for while using this medicine? Check with your doctor or health hearing healthcare practitioner as soon as you can if you have any sign of an allergic reaction. You have been given the following additional information: Gastroenteritis, Non-Infectious (Child) (Adult) Diet, Clear Liquid Diet, Lima (Adult) Diet, Clear Liquid Ondansetron Oral disintegrating tablet Do not work today, tomorrow. (Electronically signed by Melody Castle A.R.N.P. 09/13/2016 14:29)
--- NOTE | 2016-09-13 15:09 | ED MAR SUMMARY ---
..... Medication Administration Record [facility] [address] [place] [address] Patient: REBECCA SIFUENTES Visit ID: [id number] 31y, F Weight: 127.0 kg Height/Length: 66 in BMI: 45.2 ALLERGIES: Latex Given 13:44 09/13/2016 Gavin Cooper R.N. Medication Administered: ZOFRAN ODT [PO] (ONDANSETRON), Dose: 4 mg Oral Disintegrating Tablets PO. Medication Ordered: Zofran ODT PO 4 mg (NOW).
--- NOTE | 2016-09-13 15:09 | ED MED RECONCILIATION SUMMARY ---
Patient: REBECCA SIFUENTES Medication Reconciliation Report [facility] VisitID: [id number] [address] [place] [address] 31y, F Registration Date/Time: 09/13/2016 Weight: 127.0 kg Height/Length: 66 in. BMI: 45.2 ALLERGIES: Latex The patient's Home Medications are listed below: NONE. The source(s) of the original Home Medication information: Not obtained. The following Medications were given to the patient in the Emergency Department: Zofran ODT [PO] PO 4 mg, administered: 09/13/2016 1:44:00 PM The following Medications were prescribed to the patient: Zofran 4 mg: Take 1 orally every six hours as needed for nausea/vomiting. Dispense ten (10). No refills. Substitution is permissible. -- Melody Castle A.R.N.P.
--- NOTE | 2016-09-13 15:09 | ED MAR SUMMARY ---
..... Medication Administration Record [facility] [address] [place] [address] Patient: REBECCA SIFUENTES Visit ID: [id number] 31y, F Weight: 127.0 kg Height/Length: 66 in BMI: 45.2 ALLERGIES: Latex Given 13:44 09/13/2016 Gavin Cooper R.N. Medication Administered: ZOFRAN ODT [PO] (ONDANSETRON), Dose: 4 mg Oral Disintegrating Tablets PO. Medication Ordered: Zofran ODT PO 4 mg (NOW).
--- NOTE | 2016-09-13 15:09 | ED MED RECONCILIATION SUMMARY ---
Patient: REBECCA SIFUENTES Medication Reconciliation Report [facility] VisitID: [id number] [address] [place] [address] 31y, F Registration Date/Time: 09/13/2016 Weight: 127.0 kg Height/Length: 66 in. BMI: 45.2 ALLERGIES: Latex The patient's Home Medications are listed below: NONE. The source(s) of the original Home Medication information: Not obtained. The following Medications were given to the patient in the Emergency Department: Zofran ODT [PO] PO 4 mg, administered: 09/13/2016 1:44:00 PM The following Medications were prescribed to the patient: Zofran 4 mg: Take 1 orally every six hours as needed for nausea/vomiting. Dispense ten (10). No refills. Substitution is permissible. -- Melody Castle A.R.N.P.
== END 2016-09-13 14:05 | disposition home or self-care (01) ==
LOC: ED SRH 12:53
DX: K52.9 Noninfective gastroenteritis and colitis, unspecified (principal); Z91.040 Latex allergy status

== ENCOUNTER 2016-10-06 00:13 | Emergency (ER) | payer OTHER ==
--- NOTE | 2016-10-06 01:49 | ED ORDER SUMMARY ---
..... Patient: REBECCA SIFUENTES OrderSheet [facility] VisitID: [id number] [address] [place] [address] 31y, F Registration Date/Time: 10/06/2016 ORDER SHEET Weight: 127.0 kg (stated) Allergies: Latex GENERAL ORDERS: Urine Urgent (00:41 10/06/2016 CHernandez R.N. per protocol) (Ack 0:41 CHernandez R.N.) (0:41 CHernandez R.N.) UA-Culture if indicated Urgent (00:41 10/06/2016 CHernandez R.N. per protocol) (Ack 0:41 CHernandez R.N.) (0:41 CHernandez R.N.) CBC w Diff Urgent (00:50 10/06/2016 Vianney Soriano) (Ack 1:07 Edgardo R.N.) (2:00 Viveknandez R.N.) CMP Urgent (00:50 10/06/2016 Vianney Soriano) (Ack 1:07 CHernandez R.N.) (2:00 CHernandez R.N.) Lipase Urgent (00:50 10/06/2016 Vianney Soriano) (Ack 1:08 Viveknandez R.N.) (2:00 Viveknandez R.N.) MEDICATION ORDERS: IV FLUIDS: ORDER SHEET NOTES: [Electronically signed by Chris Oneil R.N. (02:10/06/2016)] [Electronically signed by Dallin Coffey Dr. (10:05 10/07/2016)] [Electronically locked/signed by Chris Oneil R.N. (02:10/06/2016)]
--- NOTE | 2016-10-06 01:49 | ED ORDER SUMMARY ---
..... Patient: REBECCA SIFUENTES OrderSheet [facility] VisitID: [id number] [address] [place] [address] 31y, F Registration Date/Time: 10/06/2016 ORDER SHEET Weight: 127.0 kg (stated) Allergies: Latex GENERAL ORDERS: Urine Urgent (00:41 10/06/2016 CHernandez R.N. per protocol) (Ack 0:41 CHernandez R.N.) (0:41 CHernandez R.N.) UA-Culture if indicated Urgent (00:41 10/06/2016 CHernandez R.N. per protocol) (Ack 0:41 CHernandez R.N.) (0:41 CHernandez R.N.) CBC w Diff Urgent (00:50 10/06/2016 Vianney Soriano) (Ack 1:07 Edgardo R.N.) (2:00 Viveknandez R.N.) CMP Urgent (00:50 10/06/2016 Vianney Soriano) (Ack 1:07 CHernandez R.N.) (2:00 CHernandez R.N.) Lipase Urgent (00:50 10/06/2016 Vianney Soriano) (Ack 1:08 Viveknandez R.N.) (2:00 Viveknandez R.N.) MEDICATION ORDERS: IV FLUIDS: ORDER SHEET NOTES: [Electronically signed by Chris Oneil R.N. (02:10/06/2016)] [Electronically signed by Dallin Coffey Dr. (10:05 10/07/2016)] [Electronically locked/signed by Chris Oneil R.N. (02:10/06/2016)]
--- NOTE | 2016-10-06 01:49 | ED CLINICAL REPORT ---
Clinical Report - Physicians/Mid Levels [facility] [address] [place] [address] 10/06/2016 0:15 Patient: REBECCA SIFUENTES Time Seen: 0041. Arrived- By private vehicle. Historian- patient. HISTORY OF PRESENT ILLNESS Chief Complaint: VOMITING and DIARRHEA. This started past few days and is still present but is improving. It was abrupt in onset and has been intermittent but is not gone now. No recent travel. She has had nausea, vomiting and diarrhea. No black stools, bloody stools, abdominal pain, flank pain or history of possible bad food exposure. No known contact with a sick individual. Has not recently been camping or on antibiotics. The illness is described as moderate. Similar symptoms previously: None. Recent medical care: Not recently seen/assessed. REVIEW OF SYSTEMS No fever, dizziness, chest pain or skin rash. All systems otherwise negative, except as recorded above. PAST HISTORY See nurses notes. Medications: None. Allergies: Latex. SOCIAL HISTORY Never smoker. No alcohol use or drug use. No recent travel. Is a local resident. ADDITIONAL NOTES The nursing notes have been reviewed. PHYSICAL EXAM Vital Signs: 10/06/2016 00:30 BP: 130/85. HR: 62. RR: 18. O2 saturation: 99%. Temp: 98 F. Pain level now: 0/10. Blood pressure normal. Oxygen saturation normal. Appearance: Alert. Oriented X3. No acute distress. Eyes: Pupils equal, round and reactive to light. Eyes normal inspection. No pale conjunctivae or scleral icterus. ENT: Ears normal. Nose normal. Pharynx normal. Neck: Normal inspection. Neck supple. CVS: Normal heart rate and rhythm. Heart sounds normal. Pulses normal. Respiratory: No respiratory distress. Breath sounds normal. No rales, rhonchi or wheezes. Abdomen: Soft and nontender. (hyperactive bowel sounds. Negative Leyva's. No tenderness at McBurney's. No rebound or guarding.). Skin: Skin warm and dry. Normal skin color. No rash. Normal skin turgor. Extremities: Extremities exhibit normal ROM. No lower extremity edema. LABS, X-RAYS, AND EKG Laboratory Tests: UA-Culture if indicated: (CASEY: 10/06/2016 00:45) ( Mscvd 10/06/2016 00:53) Final results Test Result Flag Units (Reference) URINE COLOR YELLOW URINE APPEARANCE CLEAR URINE GLUCOSE NEGATIVE (NEGATIVE) URINE BILIRUBIN NEGATIVE (NEGATIVE) URINE KETONE NEGATIVE (NEGATIVE) URINE SPECIFIC GRAVITY 1.025 (1.010-1.030) URINE PH 6.0 (5.0-8.0) URINE PROTEIN NEGATIVE (NEGATIVE) URINE UROBILINOGEN 0.2 EU/dL (0.2-1.0) URINE NITRITE NEGATIVE (NEGATIVE) URINE BLOOD NEGATIVE (NEGATIVE) URINE LEUK ESTERASE NEGATIVE (NEGATIVE) URINE RBC 0-1 rbc/hpf (0-1) URINE WBC 0-1 wbc/hpf (0-1) URINE EPITHELIAL CELLS 0-1 EPI/hpf (0-5) URINE BACTERIA TRACE (<1+) (NONE SEEN) URINE COMMENT CULT NOT INDICATED URINE CULTURES ARE SET-UP BASED ON THE FOLLOWING CRITERIA:POSITIVE NITRITEPOSITIVE LEUKOCYTE ESTERASEGREATER THAN 10 WHITE BLOOD CELLSMODERATE (2+) OR GREATER BACTERIA Urine: (CASEY: 10/06/2016 00:45) ( MsgRcvd 10/06/2016 00:53) Final results Test Result Flag Units (Reference) URINE NEGATIVE CBC w Diff: (CASEY: 10/06/2016 01:15) ( MsgRcvd 10/06/2016 01:23) Final results Test Result Flag Units (Reference) WHITE BLOOD COUNT 10.4 K/uL (4.5-11.5) RED BLOOD COUNT 4.19 M/uL (4.00-5.20) HEMOGLOBIN 11.9 L gm/dL (12.0-16.0) HEMATOCRIT 36.5 % (36.0-46.0) MEAN CELL VOLUME 87 fL (80-100) MEAN CORPUSCULAR HGB 28 pg (26-34) MEAN CORPUSCULAR HGB CONC 33 g/dL (31-37) RED CELL DISTRIBUTION WIDTH 14.8 % (11.6-14.8) PLATELET COUNT 282 K/uL (150-400) NEUTROPHIL % 50.1 % (50-75) LYMPH % 41.2 H % (25-40) MONO % 5.5 % (3-14) EOSINOPHIL % 2.8 % (0-4) BASOPHIL % 0.4 % (0-2) CMP: (CASEY: 10/06/2016 01:15) ( MsgRcvd 10/06/2016 01:34) Final results Test Result Flag Units (Reference) GLUCOSE 179 H mg/dL (70-110) BUN 10 mg/dL (7-18) CREATININE 0.9 mg/dL (0.6-1.3) Estimated GFR >60 mL/min Estimated GFR- >60 mL/min Note: Persistent reduction over 3 months in eGFR<60 mL/min/1.73 m2 defines CKD. Patients with eGFR values>=60 mL/min/1.73 m2 may also have CKD if evidence ofpersistent proteinuria. Additional information may be foundat [email or web address].org. SODIUM 143 mmol/L (136-145) POTASSIUM 3.3 L mmol/L (3.5-5.1) CHLORIDE 108 H mmol/L (98-107) CARBON DIOXIDE 26 mmol/L (21-32) CALCIUM 8.5 mg/dL (8.5-10.1) TOTAL PROTEIN 7.4 g/dL (6.4-8.2) ALBUMIN 3.5 g/dL (3.3-5.0) BILIRUBIN, TOTAL 1.1 H mg/dL (0.0-1.0) ALKALINE PHOSPHATASE 76 U/L (46-116) AST (SGOT) 25 U/L (15-37) ALT (SGPT) 45 U/L (12-78) LIPASE 120 U/L (73-393) . PROGRESS AND PROCEDURES Course of Care: The patient is a 31-year-old female with no pertinent past medical history presented for evaluation of nausea vomiting and diarrhea. Patient does not have any abdominal pain. Patient has a reassuring abdominal examination. Had discussion with the patient in regards to possible causes. most likely viral in etiology. Patient requesting note for work. The patient's workup was a markable for slight low potassium. Recommended diet assistance with the low potassium. Levels only noted to be 3.3. Lower limit of normal Is 3.5. Patient is in no pain. Patient's abdominal exam is benign. Because the patient's repeat examination is reassuring, do not feel patient requires admission to the hospital. Patient appears nontoxic. Do not feel patient has a surgical abdomen. Disposition: Discharged. Condition: good. CLINICAL IMPRESSION Vomiting with nausea. Diarrhea Acute generalized abdominal pain. INSTRUCTIONS Off work today, tomorrow. Warnings: GENERAL WARNINGS: Return or contact your physician immediately if your condition worsens or changes unexpectedly, if not improving as expected, or if other problems arise. SPECIFICALLY, return if you develop pain, fever, vomiting, the inability to keep fluids down, blood in vomitus, blood in diarrhea, fainting or lightheadedness. Your Current Medications: CONTINUE TAKING THE FOLLOWING MEDICATIONS: None*. Prescription Medications: Zofran (orally disintegrating tablets) 4 mg: take 1 orally every 8 hours as needed for nausea and vomiting. Dispense ten (10). No refill. Substitution is permissible. OTC Medications: Imodium (available over the counter): take according to label instructions. Follow-up: Return to the emergency department as needed. Follow up with your doctor in three days. Reason for referral: recheck today's concerns. Screening today revealed the patient's blood pressure to be in the normal range. The patient should follow up with a primary care provider for blood pressure management. Understanding of the discharge instructions verbalized by patient. Follow-up with: [facility], , , [address], , [place], [address] Follow up in three days. Reason for referral: schedule an appointment here if you do not have a primary care provider (PCP). Summary of care provided to patient via paper. (Electronically signed by Dallin Coffey Dr. 10/07/2016 10:05)
--- NOTE | 2016-10-06 01:49 | ED NURSING NOTES ---
Clinical Report - Nurses [facility] [address] [place] [address] 10/06/2016 0:15 Patient: REBECCA SIFUENTES TRIAGE Triage time 00:31. Acuity: LEVEL 4. Chief Complaint: ABDOMINAL PAIN. --00:36 Chris Oneil R.N. 00:30 10/06/16. BP: 130/85. HR: 62. RR: 18. O2 saturation: 99%. Temp: 98 F (oral). Pain level now: 0. --00:36 Chris Oneil R.N. Weight: 127 kg stated. Height/Length: 66 inches Per Patient. BMI: 45.2. --00:29 Chris Oneil R.N. Medications None. --00:32 Chris Oneil R.N. Medication/allergy information source: the patient. --00:36 Chris Oneil R.N. Allergies Latex. --00:32 Chris Oneil R.N. History Arrived by private vehicle. Historian: patient. Accompanied by family. ( Periumbilical abdominal pain since yesterday with nausea and had vomiting and diarrhea episodes. No symptoms.). This started yesterday. She has had nausea, vomiting, diarrhea and abdominal pain. 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 PAST MEDICAL HX: Last normal menstrual period was 1 week ago. SOCIAL HX: Never smoker. Alcohol use. History of drug use. No infectious disease exposure. --00:36 Chris Oneil R.N. PROBLEMS: Gastroenteritis. Skin Rash. Sprain. Dental Pain. Seizure. Acute Pain. URI. Pyelonephritis. Sinusitis. Bronchitis. --00:32 Chris Oneil R.N. Facial Cellulitis [RuleOut]. Herpes Labialis [RuleOut]. --00:32 Chris Oneil R.N. Interventions ID band on patient. To room. --00:36 Chris Oneil R.N. PHYSICAL ASSESSMENT Ambulatory to room. GENERAL / NEURO / PSYCH: Alert. Oriented X 4. Appears in no acute distress. HEENT: Mucous membranes are pink. RESPIRATORY: Respirations not labored. Breath sounds within normal limits. CVS: Normal sinus rhythm noted. GI / : The patient has had nausea and loose stools. Obesity. Abdomen soft. Bowel sounds within normal limits. SKIN: Skin is warm and dry. --00:37 Chris Oneil R.N. NURSING PROGRESS NOTES Reassurance given. Patient ID band checked for patient name and birthdate: patient confirmed. Instructions provided to collect clean catch urine and patient verbalized understanding. Clean catch urine collected with return of yellow-colored angela-colored clear urine; sample sent to lab for urinalysis, culture and HCG. Specimen labeled in the presence of the patient. Patient identifiers checked. Call light placed in reach. Bed placed in lowest position. Brakes of bed on. Patient placed in chair. Brakes of chair on. Patient ready for evaluation- ED physician notified. --00:39 Chris Oneil R.N. DISPOSITION / DISCHARGE Condition at departure: stable. No learning barriers present. Discharge instructions provided and reviewed with the patient. Reviewed medication(s) side effects, precautions, dosing and course information. Prescription(s) given to the patient. Reviewed referral to a primary care physician. Patient verbalized understanding. Written instructions provided in Maltese. The patient was discharged home and accompanied by spouse. She left the Emergency Department ambulatory and via private vehicle. Spouse driving. --02:09 Chris Oneil R.N. 02:08 10/06/16. BP: 122/81. HR: 65. RR: 16. O2 saturation: 100%. Temp: 98 F. Pain level now: 010. --02:09 Chris Oneil R.N. Departure time: 02:09. --02:10 Chris Oneil R.N. Locked/Released at 10/06/2016 2:10 by Chris Oneil R.N.
--- NOTE | 2016-10-06 01:49 | ED NURSING NOTES ---
Clinical Report - Nurses [facility] [address] [place] [address] 10/06/2016 0:15 Patient: REBECCA SIFUENTES TRIAGE Triage time 00:31. Acuity: LEVEL 4. Chief Complaint: ABDOMINAL PAIN. --00:36 Chris Oneil R.N. 00:30 10/06/16. BP: 130/85. HR: 62. RR: 18. O2 saturation: 99%. Temp: 98 F (oral). Pain level now: 0. --00:36 Chris Oneil R.N. Weight: 127 kg stated. Height/Length: 66 inches Per Patient. BMI: 45.2. --00:29 Chris Oneil R.N. Medications None. --00:32 Chris Oneil R.N. Medication/allergy information source: the patient. --00:36 Chris Oneil R.N. Allergies Latex. --00:32 Chris Oneil R.N. History Arrived by private vehicle. Historian: patient. Accompanied by family. ( Periumbilical abdominal pain since yesterday with nausea and had vomiting and diarrhea episodes. No symptoms.). This started yesterday. She has had nausea, vomiting, diarrhea and abdominal pain. 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 PAST MEDICAL HX: Last normal menstrual period was 1 week ago. SOCIAL HX: Never smoker. Alcohol use. History of drug use. No infectious disease exposure. --00:36 Chris Oneil R.N. PROBLEMS: Gastroenteritis. Skin Rash. Sprain. Dental Pain. Seizure. Acute Pain. URI. Pyelonephritis. Sinusitis. Bronchitis. --00:32 Chris Oneil R.N. Facial Cellulitis [RuleOut]. Herpes Labialis [RuleOut]. --00:32 Chris Oneil R.N. Interventions ID band on patient. To room. --00:36 Chris Oneil R.N. PHYSICAL ASSESSMENT Ambulatory to room. GENERAL / NEURO / PSYCH: Alert. Oriented X 4. Appears in no acute distress. HEENT: Mucous membranes are pink. RESPIRATORY: Respirations not labored. Breath sounds within normal limits. CVS: Normal sinus rhythm noted. GI / : The patient has had nausea and loose stools. Obesity. Abdomen soft. Bowel sounds within normal limits. SKIN: Skin is warm and dry. --00:37 Chris Oneil R.N. NURSING PROGRESS NOTES Reassurance given. Patient ID band checked for patient name and birthdate: patient confirmed. Instructions provided to collect clean catch urine and patient verbalized understanding. Clean catch urine collected with return of yellow-colored angela-colored clear urine; sample sent to lab for urinalysis, culture and HCG. Specimen labeled in the presence of the patient. Patient identifiers checked. Call light placed in reach. Bed placed in lowest position. Brakes of bed on. Patient placed in chair. Brakes of chair on. Patient ready for evaluation- ED physician notified. --00:39 Chris Oneil R.N. DISPOSITION / DISCHARGE Condition at departure: stable. No learning barriers present. Discharge instructions provided and reviewed with the patient. Reviewed medication(s) side effects, precautions, dosing and course information. Prescription(s) given to the patient. Reviewed referral to a primary care physician. Patient verbalized understanding. Written instructions provided in Yoruba. The patient was discharged home and accompanied by spouse. She left the Emergency Department ambulatory and via private vehicle. Spouse driving. --02:09 Chris Oneil R.N. 02:08 10/06/16. BP: 122/81. HR: 65. RR: 16. O2 saturation: 100%. Temp: 98 F. Pain level now: 010. --02:09 Chris Oneil R.N. Departure time: 02:09. --02:10 Chris Oneil R.N. Locked/Released at 10/06/2016 2:10 by Chris Oneil R.N.
--- NOTE | 2016-10-07 10:06 | ED DISCHARGE INSTRUCTIONS ---
Patient: REBECCA SIFUENTES General Instructions [facility] VisitID: [id number] [address] [place] [address] 31y, F Registration Date/Time: 10/06/2016 Vomiting with nausea. Diarrhea Acute generalized abdominal pain. INSTRUCTIONS Off work today, tomorrow. Warnings: GENERAL WARNINGS: Return or contact your physician immediately if your condition worsens or changes unexpectedly, if not improving as expected, or if other problems arise. SPECIFICALLY, return if you develop pain, fever, vomiting, the inability to keep fluids down, blood in vomitus, blood in diarrhea, fainting or lightheadedness. Your Current Medications: CONTINUE TAKING THE FOLLOWING MEDICATIONS: None*. Prescription Medications: Zofran (orally disintegrating tablets) 4 mg: take 1 orally every 8 hours as needed for nausea and vomiting. Dispense ten (10). No refill. Substitution is permissible. OTC Medications: Imodium (available over the counter): take according to label instructions. Follow-up: Return to the emergency department as needed. Follow up with your doctor in three days. Reason for referral: recheck today's concerns. Screening today revealed the patient's blood pressure to be in the normal range. The patient should follow up with a primary care provider for blood pressure management. Understanding of the discharge instructions verbalized by patient. Follow-up with: [facility], , , [address], [place], [address] Follow up in three days. Reason for referral: schedule an appointment here if you do not have a primary care provider (PCP). Summary of care provided to patient via paper. ADDITIONAL INFORMATION Vomiting [6Yr-Adult] Vomiting is a common symptom that may be due to different causes. These include gastroenteritis ("stomach flu"), food poisoning and gastritis. There are other more serious causes of vomiting which may be hard to diagnose early in the illness. Therefore, it is important to watch for the warning signs listed below. The main danger from repeated vomiting is dehydration. This is due to excess loss of water and minerals from the body. When this occurs, body fluids must be replaced. Home Care: If symptoms are severe, rest at home for the next 24 hours. You may use acetaminophen (Tylenol) or ibuprofen (Motrin, Advil) to control fever, unless another medicine was prescribed. [NOTE : If you have chronic liver or kidney disease or ever had a stomach ulcer or GI bleeding, talk with your doctor before using these medicines.] (Aspirin should never be used in anyone under 18 years of age who is ill with a fever. It may cause severe liver damage.) Avoid tobacco and alcohol use, which may worsen your symptoms. If medicines for vomiting were prescribed, take as directed. Once vomiting stops, then follow these guidelines: During The First 12-24 Hours follow the diet below: FRUIT JUICES: Apple, grape juice, clear fruit drinks, and electrolyte replacement drinks. BEVERAGES: Soft drinks without caffeine; mineral water (plain or flavored), decaffeinated tea and coffee. SOUPS: Clear broth, consomm and bouillon DESSERTS: Plain gelatin, popsicles and fruit juice bars. As you feel better, you may add 6-8 ounces of yogurt per day. During The Next 24 Hours you may add the following to the above: Hot cereal, plain toast, bread, rolls, crackers Plain noodles, rice, mashed potatoes, chicken noodle or rice soup Unsweetened canned fruit (avoid pineapple), bananas Limit caffeine and chocolate. No spices or seasonings except salt. During The Next 24 Hours Gradually resume a normal diet, as you feel better and your symptoms lessen. Follow Up with your doctor as advised if you are not improving over the next 2-3 days. Get Prompt Medical Attention if any of the following occur: Constant right-sided lower abdominal pain or increasing general abdominal pain Continued vomiting (unable to keep liquids down) for 24 hours Frequent diarrhea (more than 5 times a day); blood (red or black color) or mucus in diarrhea Reduced urine output or extreme thirst Weakness, dizziness or fainting Unusually drowsy or confused Fever of 100.4F (38C) oral or higher, not better with fever medication Yellow color of the eyes or skin Diarrhea, Uncertain Cause (Adult, Report Pending) Diarrhea has several possible causes. Commonstomach fluis caused by a virus. Food poisoning, bacteria or parasites are other causes for diarrhea. Only diarrhea caused by bacteria or parasites requires treatment with an antibiotic. Diarrhea from a virus or food poisoning improves with simple home treatment. A stool sample is needed to make the diagnosis of an infection with bacteria or parasites. Up to three stool specimens may be required to diagnose This may take up to two days to get the result. It may be necessary to wait until the stool test is complete to make the diagnosis and select the best antibiotic to prescribe. Home Care: If symptoms are severe, rest at home for the next 24 hours or until you are feeling better. You may use acetaminophen (Tylenol) or ibuprofen (Motrin, Advil) to control fever, unless another medicine was prescribed. [NOTE: If you have chronic liver or kidney disease or ever had a stomach ulcer or GI bleeding, talk with your doctor before using these medicines.] (Aspirin should never be used in anyone under 18 years of age who is ill with a fever. It may cause severe liver damage.) Avoid tobacco, caffeine and alcohol, which may worsen your symptoms. If anti-diarrhea medicine was prescribed, take this only as directed. Sometimes anti-diarrhea medicine can make your condition worse if the cause is an infectious diarrhea. Therefore, anti-diarrhea medicine should not be taken for this condition unless advised by your doctor. During The First 12-24 Hours follow the diet below: BEVERAGES: Sport drinks like Gatorade, soft drinks without caffeine; chris mukul, mineral water (plain or flavored), decaffeinated tea and coffee. SOUPS: Clear broth, consomm and bouillon DESSERTS: Plain gelatin (Jell-O), popsicles and fruit juice bars. During The Next 24 Hours you may add the following to the above: Hot cereal, plain toast, bread, rolls, crackers Plain noodles, rice, mashed potatoes, chicken noodle or rice soup Unsweetened canned fruit (avoid pineapple), bananas Limit fat intake to less than 15 grams per day by avoiding margarine, butter, oils, mayonnaise, sauces, gravies, fried foods, peanut butter, meat, poultry and fish. Limit fiber; avoid raw or cooked vegetables, fresh fruits (except bananas) and bran cereals. Limit caffeine and chocolate. No spices or seasonings except salt. During The Next 24 Hours Gradually resume a normal diet, as you feel better and your symptoms lessen. Follow Up with your doctor or as advised if you are not improving over the next two days. If you were asked to bring a specimen from home, bring the sample on the day of collection. You may call in 2 days (or as directed) for the results. Get Prompt Medical Attention if any of the following occur: Increasing abdominal pain or constant lower right abdominal pain Continued vomiting (unable to keep liquids down) Frequent diarrhea (more than 5 times a day) Blood in vomit or stool (black or red color) Reduced oral intake Dark urine, reduced urine output Weakness, dizziness, fainting Drowsiness, confusion, stiff neck or seizure Fever of 100.4F (38C) oral or higher, not better with fever medication New rash Abdominal Pain, Unknown Cause (Female) The exact cause of your abdominal (stomach) pain is not certain. This does not mean that this is something to worry about, or the right tests were not done. Everyone likes to know the exact cause of the problem, but sometimes with abdominal pain, there is no clear-cut cause, and this could be a good thing. The good news is that your symptoms can be treated, and you will feel better. Your condition does not seem serious now; however, sometimes the signs of a serious problem may take more time to appear. For this reason,it is important for you to watch for any new symptoms, problems,or worsening of your condition. Over the next few days, the abdominal pain may come and go, or be continuous. Other common symptoms can include nausea and vomiting. Sometimes it can be difficult to tell if you feel nauseous, you may just feel bad and not associate that feeling with nausea. Constipation, diarrhea, and a fever may go along with the pain. The pain may continue even if treated correctly over the following days. Depending on how things go, sometimes the cause can become clear and may require further or different treatment. Additional evaluations, medications, or tests may be needed. Home care Your health care provider may prescribe medications for pain, symptoms, or an infection. Follow the health care provider's instructions for taking these medications. General care Rest until your next exam. No strenuous activities. Try to find positions that ease discomfort. A small pillow placed on the abdomen may help relieve pain. Something warm on your abdomen (such as a heating pad) may help, but be careful not to burn yourself. Diet Do not force yourself to eat, especially if having cramps, vomiting, or diarrhea. Water is important so you do not get dehydrated. Soup may also be good. Sports drinks may also help, especially if they are not too acidic. Make sure you don't drink sugary drinks as this can make things worse. Take liquids in small amounts. Do not guzzle them. Caffeine sometimes makes the pain and cramping worse. Avoid dairy products if you have vomiting or diarrhea. Don't eat large amounts at a time. Wait a few minutes between bites. Eat a diet low in fiber (called a low-residue diet). Foods allowed include refined breads, white rice, fruit and vegetable juices without pulp, tender meats. These foods will pass more easily through the intestine. Avoid whole-grain foods, whole fruits and vegetables, meats, seeds and nuts, fried or fatty foods, dairy, alcohol and spicy foods until your symptoms go away. Follow-up care Follow up with your health care provider as instructed, or if your pain does not begin to improve in the next 24 hours. When to seek medical care Seek prompt medical care if any of the following occur: Pain gets worse or moves to the right lower abdomen New or worsening vomiting or diarrhea Swelling of the abdomen Unable to pass stool for more than three days Fever of 100.4F (38C) or higher, or as directed by your healthcare provider. Blood in vomit or bowel movements (dark red or black color) Jaundice (yellow color of eyes and skin) Weakness, dizziness Chest, arm, back, neck or jaw pain Unexpected vaginal bleeding or missed period Call 911 Call emergency services if any of the following occur: Trouble breathing Confusion Fainting or loss of consciousness Rapid heart rate Seizure Ondansetron Oral disintegrating tablet What is this medicine? ONDANSETRON (on FIDELIA se andrew) is used to treat nausea and vomiting caused by chemotherapy. It is also used to prevent or treat nausea and vomiting after surgery. How should I use this medicine? These tablets are made to dissolve in the mouth. Do not try to push the tablet through the foil backing. With dry hands, peel away the foil backing and gently remove the tablet. Place the tablet in the mouth and allow it to dissolve, then swallow. While you may take these tablets with water, it is not necessary to do so. Talk to your merchandise worker regarding the use of this medicine in children. Special care may be needed. What side effects may I notice from receiving this medicine? Side effects that you should report to your doctor or health career development manager as soon as possible: allergic reactions like skin rash, itching or hives, swelling of the face, lips, or tongue breathing problems dizziness fast or irregular heartbeat feeling faint or lightheaded, falls fever and chills swelling of the hands and feet tightness in the chest Side effects that usually do not require medical attention (report to your doctor or health career development manager if they continue or are bothersome): constipation or diarrhea headache What may interact with this medicine? Do not take this medicine with any of the following medications: -apomorphine -cisapride -dofetilide -dronedarone -pimozide -thioridazine -ziprasidone This medicine may also interact with the following medications: -carbamazepine -phenytoin -rifampicin -tramadol -other medicines that prolong the QT interval (cause an abnormal heart rhythm) What if I miss a dose? If you miss a dose, take it as soon as you can. If it is almost time for your next dose, take only that dose. Do not take double or extra doses. Where should I keep my medicine? Keep out of the reach of children. Store between 2 and 30 degrees C (36 and 86 degrees F). Throw away any unused medicine after the expiration date. What should I tell my health care provider before I take this medicine? They need to know if you have any of these conditions: heart disease history of irregular heartbeat liver disease low levels of magnesium or potassium in the blood an unusual or allergic reaction to ondansetron, granisetron, other medicines, foods, dyes, or preservatives or trying to get breast-feeding What should I watch for while using this medicine? Check with your doctor or health career development manager as soon as you can if you have any sign of an allergic reaction. You have been given the following additional information: Vomiting (6Y-Adult) Diarrhea, Unk Cause (Adult) Report Pendg Abdominal Pain, Unknown Cause, (Female) Ondansetron Oral disintegrating tablet Off work today, tomorrow. (Electronically signed by Dallin Coffey Dr. 10/07/2016 10:05)
--- NOTE | 2016-10-07 10:06 | ED MAR SUMMARY ---
..... Medication Administration Record Located Within [facility] [address] [place] [id number] Patient: REBECCA SIFUENTES Ramon Visit ID: [id number] 31y, F Weight: 127.0 kg Height/Length: 66 in BMI: 45.2 ALLERGIES: Latex
--- NOTE | 2016-10-07 10:06 | ED MED RECONCILIATION SUMMARY ---
Patient: REBECCA SIFUENTES Medication Reconciliation Report [facility] VisitID: [id number] [address] [place] [address] 31y, F Registration Date/Time: 10/06/2016 Weight: 127.0 kg Height/Length: 66 in. BMI: 45.2 ALLERGIES: Latex The patient's Home Medications are listed below: NONE. The source(s) of the original Home Medication information: patient The following Medications were given to the patient in the Emergency Department: None. The following Medications were prescribed to the patient: Zofran (orally disintegrating tablets) 4 mg: take 1 orally every 8 hours as needed for nausea and vomiting. Dispense ten (10). No refill. Substitution is permissible. -- Dallin Coffey Dr. Imodium (available over the counter): take according to label instructions. -- Dallin Coffey Dr.
--- NOTE | 2016-10-07 10:06 | ED MED RECONCILIATION SUMMARY ---
Patient: REBECCA SIFUENTES Medication Reconciliation Report [facility] VisitID: [id number] [address] [place] [place] [address] 31y, F Registration Date/Time: 10/06/2016 Weight: 127.0 kg Height/Length: 66 in. BMI: 45.2 ALLERGIES: Latex The patient's Home Medications are listed below: NONE. The source(s) of the original Home Medication information: patient The following Medications were given to the patient in the Emergency Department: None. The following Medications were prescribed to the patient: Zofran (orally disintegrating tablets) 4 mg: take 1 orally every 8 hours as needed for nausea and vomiting. Dispense ten (10). No refill. Substitution is permissible. -- Dallin Coffey Dr. Imodium (available over the counter): take according to label instructions. -- Dallin Coffey Dr.
--- NOTE | 2016-10-07 10:06 | ED MAR SUMMARY ---
..... Medication Administration Record [facility] [address] [place], [place] [id number] Patient: REBECCA SIFUENTES Ramon Visit ID: [id number] 31y, F Weight: 127.0 kg Height/Length: 66 in BMI: 45.2 ALLERGIES: Latex
== END 2016-10-06 02:08 | disposition home or self-care (01) ==
LOC: ED SRH 00:13
DX: R11.2 Nausea with vomiting, unspecified (principal); R19.7 Diarrhea, unspecified; R10.84 Generalized abdominal pain; Z91.040 Latex allergy status
CPT/HCPCS: 90004; 90100; 92235; 93070; 95059

== ENCOUNTER 2016-10-25 16:46 | Emergency (ER) | payer OTHER ==
--- NOTE | 2016-10-25 17:29 | DIAGNOSTIC IMAGING REPORT ---
PROCEDURE: XR HAND 3 OR 4 VIEWS - LEFT INDICATION: Left fourth finger injury. Previous foreign body 1 month ago. TECHNIQUE: Five views. COMPARISON: None. FINDINGS: There is moderate to marked soft tissue swelling of the left hand and proximal fingers. There are two metal foreign bodies in the radial soft tissues of the left fourth finger (8 mm, 2 mm). Osseous structures and joint spaces are normal. No evidence of fracture IMPRESSION: 1. Moderate to marked soft tissue swelling of the left hand and proximal fingers. 2. There are two 8 mm and 2 mm metal foreign bodies in the soft tissues of the left fourth finger. 3. No evidence of fracture.
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
--- NOTE | 2016-10-25 17:49 | ED ORDER SUMMARY ---
..... Patient: REBECCA SIFUENTES OrderSheet [facility] VisitID: [id number] [address] [place] [address] 31y, F Registration Date/Time: 10/25/2016 ORDER SHEET Weight: 127.0 kg (stated) Allergies: Latex GENERAL ORDERS: Hand 3 or 4V Left Urgent (16:58 10/25/2016 EKkaryn P.A.-C) (17:04 LWhalen R.N.) (Ack 17:04 Butch) MEDICATION ORDERS: Tdap IM 0.5 mL (NOW, per protocol) (16:58 10/25/2016 Donnell P.A.-C) (Ack 17:09 LWhalen R.N.) (17:38 LWhalen R.N.) Keflex PO 500 mg (NOW) (16:58 10/25/2016 Donnell P.A.-C) (Ack 17:09 LWhalen R.N.) (17:38 LWhalen R.N.) IV FLUIDS: ORDER SHEET NOTES: [Electronically signed by Ailyn Tran P.A.-C (18:08 10/25/2016)] [Electronically signed by Matthew Pimentel R.N. (19:37 10/25/2016)] [Electronically locked/signed by Matthew Pimentel R.N. (19:37 10/25/2016)]
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
--- NOTE | 2016-10-25 17:49 | ED ORDER SUMMARY ---
..... Patient: REBECCA SIFUENTES OrderSheet [facility] VisitID: [id number] [address] [place] [address] 31y, F Registration Date/Time: 10/25/2016 ORDER SHEET Weight: 127.0 kg (stated) Allergies: Latex GENERAL ORDERS: Hand 3 or 4V Left Urgent (16:58 10/25/2016 EKkaryn P.A.-C) (17:04 LWhalen R.N.) (Ack 17:04 Butch) MEDICATION ORDERS: Tdap IM 0.5 mL (NOW, per protocol) (16:58 10/25/2016 Donnell P.A.-C) (Ack 17:09 LWhalen R.N.) (17:38 LWhalen R.N.) Keflex PO 500 mg (NOW) (16:58 10/25/2016 Donnell P.A.-C) (Ack 17:09 LWhalen R.N.) (17:38 LWhalen R.N.) IV FLUIDS: ORDER SHEET NOTES: [Electronically signed by Ailyn Tran P.A.-C (18:08 10/25/2016)] [Electronically signed by Matthew Pimentel R.N. (19:37 10/25/2016)] [Electronically locked/signed by Matthew Pimentel R.N. (19:37 10/25/2016)]
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
--- NOTE | 2016-10-25 19:37 | ED MED RECONCILIATION SUMMARY ---
Patient: REBECCA SIFUENTES Medication Reconciliation Report [facility] VisitID: [id number] [address] [place] [address] 31y, F Registration Date/Time: 10/25/2016 Weight: 127.0 kg Height/Length: 66 in. BMI: 45.2 ALLERGIES: Latex The patient's Home Medications are listed below: NONE. The source(s) of the original Home Medication information: Not obtained. The following Medications were given to the patient in the Emergency Department: TDAP [IM] IM 0.5 mL, administered: 10/25/2016 5:23:00 PM Keflex [PO] PO 500 mg, administered: 10/25/2016 5:28:00 PM The following Medications were prescribed to the patient: Cephalexin 500 mg: take 1 capsule orally every 8 hours for 10 days. No refill. -- Ailyn Tran, P.A.-C Hydrocodone/APAP 5mg / 325mg: every 6 hours as needed for pain. Dispense five (5). No refill. -- Ailyn Tran, P.A.-C Ibuprofen 800 mg tablets: take 1 tablet orally every 8 hours for 5 days, as needed for pain. Dispense fifteen (15). No refill. -- Ailyn Tran, P.A.-C Bactrim DS 800 mg / 160 mg: take 1 tablet orally every 12 hours for 10 days. No refill. Substitution is permissible. -- Ailyn Tran, P.A.-C
--- NOTE | 2016-10-25 19:37 | ED DISCHARGE INSTRUCTIONS ---
Patient: REBECCA SIFUENTES General Instructions [facility] VisitID: [id number] [address] [place] [address] 31y, F Registration Date/Time: 10/25/2016 Single superficial puncture wound to the left hand; foreign body and infection present. Delayed treatment. Contusion to the left hand. INSTRUCTIONS Limit use of your hand. Prescription Medications: Cephalexin 500 mg: take 1 capsule orally every 8 hours for 10 days. No refill. Hydrocodone/APAP 5mg / 325mg: every 6 hours as needed for pain. Dispense five (5). No refill. Ibuprofen 800 mg tablets: take 1 tablet orally every 8 hours for 5 days, as needed for pain. Dispense fifteen (15). No refill. Bactrim DS 800 mg / 160 mg: take 1 tablet orally every 12 hours for 10 days. No refill. Substitution is permissible. Follow-up with: [facility], , [address], [place], [address] Follow up Saturday. Call for an appointment. ADDITIONAL INFORMATION Puncture Wound (General) A puncture wound is a hole through the skin. Bacteria, dirt and debris can be drawn into this wound, increasing the risk of infection. However, antibiotics are usually not prescribed for this injury unless signs of infection are already present. Therefore, it is important to observe the wound closely for the signs of infection listed below. Home Care: If your wound is on an arm, hand, leg, or foot, keep that part raised during the first 48 hours to reduce swelling and pain. Keep the wound clean and dry. If a bandage was applied and it becomes wet or dirty, replace it. Otherwise, leave it in place for the next 24 hours. You may use acetaminophen (Tylenol) or ibuprofen (Motrin, Advil) to control pain, unless another medicine was prescribed. [NOTE: If you have chronic liver or kidney disease or ever had a stomach ulcer or GI bleeding, talk with your doctor before using these medicines.] You may shower as usual. However, do not soak the area in water (no baths or swimming) during the first 48 hours. Follow Up: Most puncture wounds heal within 10 days. However, an infection may sometimes occur despite proper treatment. If small particles were drawn into the puncture wound (such as fragments of cloth, rubber, wood or dirt), an infection may occur. These fragments are very hard to find during the first exam since it is not possible to get a good look inside a puncture wound and they do not show on an X-ray. Antibiotics and a minor surgical procedure to find and remove the foreign object will be needed if this happens. Therefore, check the wound daily for the warning signs listed below. Get Prompt Medical Attention if any of the following occur: SIGNS OF INFECTION: Increasing pain in the wound Redness, swelling, pus or red lines coming from the wound Fever of 100.4F (38C) or higher, or as directed by your healthcare provider Contusion: Hand You have a CONTUSION of your hand. This causes local pain, swelling and sometimes bruising. There are no broken bones. This injury takes from a few days to a few weeks to heal. Home Care: 1) Keep your arm elevated to reduce pain and swelling. This is very important during the first 48 hours. 2) Apply an ice pack (ice cubes in a plastic bag, wrapped in a towel) over the injured area for 20 minutes every 1-2 hours the first day. You should continue with ice packs 3-4 times a day for the next two days. Continue the use of ice packs for relief of pain and swelling as needed. 3) You may use acetaminophen (Tylenol) or ibuprofen (Motrin, Advil) to control pain, unless another pain medicine was prescribed. [ NOTE : If you have chronic liver or kidney disease or ever had a stomach ulcer or GI bleeding, talk with your doctor before using these medicines.] Follow Up with your doctor or this facility if you are not starting to improve within the next THREE days. [NOTE: If X-rays were taken, they will be reviewed by a radiologist. You will be notified of any new findings that may affect your care.] Get Prompt Medical Attention if any of the following occur: -- Pain or swelling increases -- Redness, warmth or drainage -- Hand or fingers becomes cold, blue, numb or tingly Cephalexin Monohydrate Oral tablet What is this medicine? CEPHALEXIN (sef a NONI in) is a cephalosporin antibiotic. It is used to treat certain kinds of bacterial infections It will not work for colds, flu, or other viral infections. How should I use this medicine? Take this medicine by mouth with a full glass of water. Follow the directions on the prescription label. This medicine can be taken with or without food. Take your medicine at regular intervals. Do not take your medicine more often than directed. Take all of your medicine as directed even if you think you are better. Do not skip doses or stop your medicine early. Talk to your banquet pilot regarding the use of this medicine in children. While this drug may be prescribed for selected conditions, precautions do apply. What side effects may I notice from receiving this medicine? Side effects that you should report to your doctor or health wild animal caretaker as soon as possible: allergic reactions like skin rash, itching or hives, swelling of the face, lips, or tongue breathing problems pain or trouble passing urine redness, blistering, peeling or loosening of the skin, including inside the mouth severe or watery diarrhea unusually weak or tired yellowing of the eyes, skin Side effects that usually do not require medical attention (report to your doctor or health wild animal caretaker if they continue or are bothersome): gas or heartburn genital or anal irritation headache joint or muscle pain nausea, vomiting What may interact with this medicine? probenecid some other antibiotics What if I miss a dose? If you miss a dose, take it as soon as you can. If it is almost time for your next dose, take only that dose. Do not take double or extra doses. There should be at least 4 to 6 hours between doses. Where should I keep my medicine? Keep out of the reach of children. Store at room temperature between 59 and 86 degrees F (15 and 30 degrees C). Throw away any unused medicine after the expiration date. What should I tell my health care provider before I take this medicine? They need to know if you have any of these conditions: kidney disease stomach or intestine problems, especially colitis an unusual or allergic reaction to cephalexin, other cephalosporins, penicillins, other antibiotics, medicines, foods, dyes or preservatives or trying to get breast-feeding What should I watch for while using this medicine? Tell your doctor or health wild animal caretaker if your symptoms do not begin to improve in a few days. Do not treat diarrhea with over the counter products. Contact your doctor if you have diarrhea that lasts more than 2 days or if it is severe and watery. If you have diabetes, you may get a false-positive result for sugar in your urine. Check with your doctor or health wild animal caretaker. You have been given the following additional information: Puncture Wound, General Contusion, Hand Cephalexin Monohydrate Oral tablet Limit use of your hand. (Electronically signed by Ailyn Tran P.A.-C 10/25/2016 18:08)
--- NOTE | 2016-10-25 19:37 | ED DISCHARGE INSTRUCTIONS ---
Patient: REBECCA SIFUENTES General Instructions [facility] VisitID: [id number] [address] [place] [place] [address] 31y, F Registration Date/Time: 10/25/2016 Single superficial puncture wound to the left hand; foreign body and infection present. Delayed treatment. Contusion to the left hand. INSTRUCTIONS Limit use of your hand. Prescription Medications: Cephalexin 500 mg: take 1 capsule orally every 8 hours for 10 days. No refill. Hydrocodone/APAP 5mg / 325mg: every 6 hours as needed for pain. Dispense five (5). No refill. Ibuprofen 800 mg tablets: take 1 tablet orally every 8 hours for 5 days, as needed for pain. Dispense fifteen (15). No refill. Bactrim DS 800 mg / 160 mg: take 1 tablet orally every 12 hours for 10 days. No refill. Substitution is permissible. Follow-up with: [facility], , [address], [place], [address] Follow up Saturday. Call for an appointment. ADDITIONAL INFORMATION Puncture Wound (General) A puncture wound is a hole through the skin. Bacteria, dirt and debris can be drawn into this wound, increasing the risk of infection. However, antibiotics are usually not prescribed for this injury unless signs of infection are already present. Therefore, it is important to observe the wound closely for the signs of infection listed below. Home Care: If your wound is on an arm, hand, leg, or foot, keep that part raised during the first 48 hours to reduce swelling and pain. Keep the wound clean and dry. If a bandage was applied and it becomes wet or dirty, replace it. Otherwise, leave it in place for the next 24 hours. You may use acetaminophen (Tylenol) or ibuprofen (Motrin, Advil) to control pain, unless another medicine was prescribed. [NOTE: If you have chronic liver or kidney disease or ever had a stomach ulcer or GI bleeding, talk with your doctor before using these medicines.] You may shower as usual. However, do not soak the area in water (no baths or swimming) during the first 48 hours. Follow Up: Most puncture wounds heal within 10 days. However, an infection may sometimes occur despite proper treatment. If small particles were drawn into the puncture wound (such as fragments of cloth, rubber, wood or dirt), an infection may occur. These fragments are very hard to find during the first exam since it is not possible to get a good look inside a puncture wound and they do not show on an X-ray. Antibiotics and a minor surgical procedure to find and remove the foreign object will be needed if this happens. Therefore, check the wound daily for the warning signs listed below. Get Prompt Medical Attention if any of the following occur: SIGNS OF INFECTION: Increasing pain in the wound Redness, swelling, pus or red lines coming from the wound Fever of 100.4F (38C) or higher, or as directed by your healthcare provider Contusion: Hand You have a CONTUSION of your hand. This causes local pain, swelling and sometimes bruising. There are no broken bones. This injury takes from a few days to a few weeks to heal. Home Care: 1) Keep your arm elevated to reduce pain and swelling. This is very important during the first 48 hours. 2) Apply an ice pack (ice cubes in a plastic bag, wrapped in a towel) over the injured area for 20 minutes every 1-2 hours the first day. You should continue with ice packs 3-4 times a day for the next two days. Continue the use of ice packs for relief of pain and swelling as needed. 3) You may use acetaminophen (Tylenol) or ibuprofen (Motrin, Advil) to control pain, unless another pain medicine was prescribed. [ NOTE : If you have chronic liver or kidney disease or ever had a stomach ulcer or GI bleeding, talk with your doctor before using these medicines.] Follow Up with your doctor or this facility if you are not starting to improve within the next THREE days. [NOTE: If X-rays were taken, they will be reviewed by a radiologist. You will be notified of any new findings that may affect your care.] Get Prompt Medical Attention if any of the following occur: -- Pain or swelling increases -- Redness, warmth or drainage -- Hand or fingers becomes cold, blue, numb or tingly Cephalexin Monohydrate Oral tablet What is this medicine? CEPHALEXIN (sef a NONI in) is a cephalosporin antibiotic. It is used to treat certain kinds of bacterial infections It will not work for colds, flu, or other viral infections. How should I use this medicine? Take this medicine by mouth with a full glass of water. Follow the directions on the prescription label. This medicine can be taken with or without food. Take your medicine at regular intervals. Do not take your medicine more often than directed. Take all of your medicine as directed even if you think you are better. Do not skip doses or stop your medicine early. Talk to your specialist managers regarding the use of this medicine in children. While this drug may be prescribed for selected conditions, precautions do apply. What side effects may I notice from receiving this medicine? Side effects that you should report to your doctor or health prompt care rn as soon as possible: allergic reactions like skin rash, itching or hives, swelling of the face, lips, or tongue breathing problems pain or trouble passing urine redness, blistering, peeling or loosening of the skin, including inside the mouth severe or watery diarrhea unusually weak or tired yellowing of the eyes, skin Side effects that usually do not require medical attention (report to your doctor or health prompt care rn if they continue or are bothersome): gas or heartburn genital or anal irritation headache joint or muscle pain nausea, vomiting What may interact with this medicine? probenecid some other antibiotics What if I miss a dose? If you miss a dose, take it as soon as you can. If it is almost time for your next dose, take only that dose. Do not take double or extra doses. There should be at least 4 to 6 hours between doses. Where should I keep my medicine? Keep out of the reach of children. Store at room temperature between 59 and 86 degrees F (15 and 30 degrees C). Throw away any unused medicine after the expiration date. What should I tell my health care provider before I take this medicine? They need to know if you have any of these conditions: kidney disease stomach or intestine problems, especially colitis an unusual or allergic reaction to cephalexin, other cephalosporins, penicillins, other antibiotics, medicines, foods, dyes or preservatives or trying to get breast-feeding What should I watch for while using this medicine? Tell your doctor or health prompt care rn if your symptoms do not begin to improve in a few days. Do not treat diarrhea with over the counter products. Contact your doctor if you have diarrhea that lasts more than 2 days or if it is severe and watery. If you have diabetes, you may get a false-positive result for sugar in your urine. Check with your doctor or health prompt care rn. You have been given the following additional information: Puncture Wound, General Contusion, Hand Cephalexin Monohydrate Oral tablet Limit use of your hand. (Electronically signed by Ailyn Tran P.A.-C 10/25/2016 18:08)
--- NOTE | 2016-10-25 19:37 | ED MAR SUMMARY ---
..... Medication Administration Record [facility] [address] [place] [address] Patient: REBECCA SIFUENTES Visit ID: [id number] 31y, F Weight: 127.0 kg Height/Length: 66 in BMI: 45.2 ALLERGIES: Latex Given 17:10/25/2016 Matthew Pimentel RWalterNWalter Medication Administered: TDAP [IM], Dose: 0.5 mL IM. Medication Ordered: Tdap IM 0.5 mL (NOW, per protocol). Given 17:10/25/2016 Matthew Pimentel, R.N. Medication Administered: KEFLEX [PO] (CEPHALEXIN), Dose: 500 mg Tablets PO. Medication Ordered: Keflex PO 500 mg (NOW).
--- NOTE | 2016-10-25 19:37 | ED MAR SUMMARY ---
..... Medication Administration Record [facility] [address] [place] [address] Patient: REBECCA SIFUENTES Visit ID: [id number] 31y, F Weight: 127.0 kg Height/Length: 66 in BMI: 45.2 ALLERGIES: Latex Given 17:10/25/2016 Matthew Pimentel RWalterNWalter Medication Administered: TDAP [IM], Dose: 0.5 mL IM. Medication Ordered: Tdap IM 0.5 mL (NOW, per protocol). Given 17:10/25/2016 Matthew Pimentel, R.N. Medication Administered: KEFLEX [PO] (CEPHALEXIN), Dose: 500 mg Tablets PO. Medication Ordered: Keflex PO 500 mg (NOW).
--- NOTE | 2016-10-25 19:37 | ED MED RECONCILIATION SUMMARY ---
Patient: REBECCA SIFUENTES Medication Reconciliation Report [facility] VisitID: [id number] [address] [place] [address] 31y, F Registration Date/Time: 10/25/2016 Weight: 127.0 kg Height/Length: 66 in. BMI: 45.2 ALLERGIES: Latex The patient's Home Medications are listed below: NONE. The source(s) of the original Home Medication information: Not obtained. The following Medications were given to the patient in the Emergency Department: TDAP [IM] IM 0.5 mL, administered: 10/25/2016 5:23:00 PM Keflex [PO] PO 500 mg, administered: 10/25/2016 5:28:00 PM The following Medications were prescribed to the patient: Cephalexin 500 mg: take 1 capsule orally every 8 hours for 10 days. No refill. -- Ailyn Tran, P.A.-C Hydrocodone/APAP 5mg / 325mg: every 6 hours as needed for pain. Dispense five (5). No refill. -- Ailyn Tran, P.A.-C Ibuprofen 800 mg tablets: take 1 tablet orally every 8 hours for 5 days, as needed for pain. Dispense fifteen (15). No refill. -- Ailyn Tran, P.A.-C Bactrim DS 800 mg / 160 mg: take 1 tablet orally every 12 hours for 10 days. No refill. Substitution is permissible. -- Ailyn Tran, P.A.-C
== END 2016-10-25 17:54 | disposition home or self-care (01) ==
LOC: ED SRH 16:46
DX: S61.442A Puncture wound with foreign body of left hand, initial encounter (principal); S60.222A Contusion of left hand, initial encounter; W22.8XXA Striking against or struck by other objects, initial encounter; Y93.9 Activity, unspecified; Y92.009 Unspecified place in unspecified non-institutional (private) residence as the place of occurrence of the external cause; Y99.9 Unspecified external cause status; Z23 Encounter for immunization; Z91.040 Latex allergy status